=== PATIENT | male | born 1975 | race Caucasian/White ===

== ENCOUNTER 2021-04-13 19:59 | Inpatient (IN) | payer BC, MEDICAID ==
[2021-04-13] MEDS ORDERED: Sodium Chloride 0.9% 1000 ML 1,000 ML IV SCH (20:15)
[2021-04-13] MEDS ORDERED: Zofran 4 MG/2 ML VIAL IV ONE (20:15)
[2021-04-13] MEDS ORDERED: Hydromorphone 1 mg/ml Injection IV ONE (20:17)
[2021-04-13] MEDS ORDERED: Zosyn 3.375 GM Vial 3.375 GM in Sodium Chloride 100ML MINI-BAG PLUS 100 ML IV ONE (20:17)
[2021-04-13] MEDS ORDERED: Zofran 4 MG/2 ML VIAL ONE (20:31)
[2021-04-13] MEDS ORDERED: Hydromorphone 1 mg/ml Injection ONE (20:31)
[2021-04-13] MEDS ORDERED: Zosyn 3.375 GM Vial IV ONE ×2 (20:32→20:34)
[2021-04-13] MEDS ORDERED: Sodium Chloride 0.9% 100 ML BAG 100 ML ONE (20:33)
[2021-04-13] MEDS ORDERED: Sodium Chloride 100ML MINI-BAG PLUS 0 ML IV ONE (20:34)
[2021-04-13 21:15] LABS: Absolute Neutrophil Ct (ANC) 7.18 (1.4-6.9); BASOPHIL % 0.1 % (0.0-0.4); Basophil (Absolute #) 0.01 (0-0.4); Eosinophil % 0.3 % (0.00-5.0); Eosinophil (Absolute #) 0.03 (0-0.5); Hematocrit 40.2 % (42-50); Hemoglobin 13.5 gm/dl (12.5-18.0); Lymphocyte (Absolute #) 1.55 (1.0-4.6); Lymphocytes % 15.9 % (24.0-44.0); Mean Cell Volume 85.7 fl (78-100); Mean Corpuscular Hemoglobin 28.8 pg (26-32); Mean Corpuscular Hgb Concent. 33.6 g/dl (32-36); Mean Platelet Volume 9.1 fl (7.5-11.0); Monocytes % 10.2 % (0.0-12.0); Neutrophil % 73.5 % (36.0-66.0); Platelet Count 222 K/mm3 (150-450); Red Blood Count 4.69 M/mm3 (4.1-5.6); Red Cell Distribution Width 12.5 % (11.5-14.0); White Blood Count 9.8 K/mm3 (4.0-10.5)
[2021-04-13 21:27] LABS: ALBUMIN 3.9 g/dL (3.5-5.0); ALKALINE PHOSPHATASE 89 U/L (38-126); ANION GAP 14.8 MEQ/L (5-15); BLOOD UREA NITROGEN 10 mg/dL (9-20); CHLORIDE 90 mmol/L (98-107); Calcium 8.4 mg/dL (8.4-10.2); Carbon Dioxide 29 mmol/L (22-30); Creatinine 1 0.76 mg/dL (0.66-1.25); EST GLOMERULAR FILTRATION RATE > 60.0 ML/MIN; Glucose 255 mg/dL (74-106); Potassium 4.2 mmol/L (3.5-5.1); SGOT/AST 17 U/L (17-59); SGPT/ALT 19 U/L (0-50); SODIUM 130 mmol/L (137-145); Total Protein 6.6 g/dL (6.3-8.2)
--- NOTE | 2021-04-13 22:03 | ERPHSYRPT ---
- History of Present Illness Time Seen by Provider: 04/13/21 20:30 Source: patient Exam Limitations: no limitations Patient Subjective Stated Complaint: Fever. Right buttock pain, redness, swelling, and tenderness, bloody drainage from right buttock Triage Nursing Assessment: Right buttock red and swollen, small amount of serosanguineous drainage. Physician History: Patient is a 45-year-old male who started 1 week ago with redness and pain right buttocks which has progressed and is now causing severe pain swelling etc. he has been treated as an outpatient with Augmentin without benefit. He is diabetic but at present is not requiring medications. Timing/Duration: week(s) (1) Severity: severe Modifying Factors: Improves With: movement Associated Symptoms: denies symptoms Allergies/Adverse Reactions: No Known Drug Allergies Allergy (Unverified 04/13/21 20:27) Home Medications: Amoxicillin/Potassium Clav [Amox-Clav 875-125 mg Tablet] 1 tab PO BID 04/13/21 [History] Travel Risk - International Travel Have you traveled outside of the country in past 3 weeks: No - Coronavirus Screening Are you exhibiting any of the following symptoms?: No - Vaccine Status Have you recieved a Covid-19 vaccination: No - Review of Systems Constitutional: No Fever, No Chills Eyes: No Symptoms Ears, Nose, & Throat: No Symptoms Respiratory: No Cough, No Dyspnea Cardiac: No Chest Pain, No Edema, No Syncope Abdominal/Gastrointestinal: No Abdominal Pain, No Nausea, No Vomiting, No Diarrhea Genitourinary Symptoms: No Dysuria Musculoskeletal: No Back Pain, No Neck Pain Skin: Cellulitis (Right buttocks), No Rash Neurological: No Dizziness, No Focal Weakness, No Sensory Changes Psychological: No Symptoms Endocrine: No Symptoms All Other Systems: Reviewed and Negative - Past Medical History Pertinent Past Medical History: No Neurological History: No Pertinent History ENT History: No Pertinent History Cardiac History: No Pertinent History Respiratory History: No Pertinent History Endocrine Medical History: Diabetes Type II Musculoskeletal History: No Pertinent History GI Medical History: No Pertinent History History: No Pertinent History Psycho-Social History: No Pertinent History Male Reproductive Disorders: No Pertinent History Other Medical History: cellulitis left inner thigh 2014 - Past Surgical History Past Surgical History: Yes Neuro Surgical History: No Pertinent History Cardiac: No Pertinent History Respiratory: No Pertinent History Gastrointestinal: No Pertinent History Genitourinary: No Pertinent History Musculoskeletal: Orthopedic Surgery Male Surgical History: No Pertinent History Other Surgical History: shoulder surgery - Social History Smoking Status: Former smoker Drug Use: none - Nursing Vital Signs Nursing Vital Signs: Initial Vital Signs Temperature 98.7 F 04/13/21 20:14 Pulse Rate 99 H 04/13/21 20:14 Respiratory Rate 20 04/13/21 20:14 Blood Pressure 149/85 04/13/21 20:14 O2 Sat by Pulse Oximetry 98 04/13/21 20:14 Pain Scale Pain Intensity 10 - Physical Exam General Appearance: moderate distress Eye Exam: PERRL/EOMI, eyes nml inspection Ears, Nose, Throat Exam: normal ENT inspection, TMs normal, pharynx normal, moist mucous membranes Neck Exam: normal inspection, non-tender, supple, full range of motion Respiratory Exam: normal breath sounds, lungs clear, No respiratory distress Cardiovascular Exam: regular rate/rhythm, normal heart sounds, normal peripheral pulses Gastrointestinal/Abdomen Exam: soft, normal bowel sounds, No tenderness, No mass Back Exam: normal inspection, normal range of motion, No CVA tenderness, No vertebral tenderness Extremity Exam: normal inspection, normal range of motion, pelvis stable Neurologic Exam: alert, oriented x 3, cooperative, normal mood/affect, nml cerebellar function, nml station & gait, sensation nml, No motor deficits Skin Exam: other (The right buttocks is remarkable for extreme redness heat tenderness and edema) Lymphatic Exam: No adenopathy SpO2: 98 O2 Delivery: Room Air - Course Nursing assessment & vital signs reviewed: Yes - CT Exams Abdomen/Pelvis CT Interpretation: Tele-radiologist Report Ordered Tests: Active Orders 24 hr Category Date Time Status IV Insertion STAT Care 04/13/21 20:15 Active ABDOMEN AND PELVIS W CONTRAST [CT] Stat Exams 04/13/21 20:18 Taken BLOOD CULTURE Stat Lab 04/13/21 20:30 Ordered CBC W DIFF Stat Lab 04/13/21 20:30 Completed CMP Stat Lab 04/13/21 20:30 Completed Lactic Acid Stat Lab 04/13/21 21:06 Completed Medication Summary Generic Name Dose Route Start Last Admin Trade Name Freq PRN Reason Stop Dose Admin Sodium Chloride 1,000 mls @ 100 mls/hr 04/13/21 20:15 04/13/21 20:38 Sodium Chloride 0.9% 1000 Ml IV 05/13/21 20:14 100 mls/hr .Q10H MIRIAN Administration Discontinued Medications Generic Name Dose Route Start Last Admin Trade Name Brayden PRN Reason Stop Dose Admin Hydromorphone HCl 1 mg 04/13/21 20:17 04/13/21 20:39 Hydromorphone 1 Mg/1ml Inj 1 Mg/Ml Syringe IV 04/13/21 20:18 1 mg STAT ONE Administration Hydromorphone HCl Confirm 04/13/21 20:31 Hydromorphone 1 Mg/1ml Inj 1 Mg/Ml Syringe Administered 04/13/21 20:32 Dose 1 mg .ROUTE .STK-MED ONE Piperacillin Sod/Tazobactam 100 mls @ 200 mls/hr 04/13/21 20:17 04/13/21 20:39 Sod 3.375 gm/ Sodium Chloride IV 04/13/21 20:46 200 mls/hr STAT ONE Administration Sodium Chloride Confirm 04/13/21 20:33 Sodium Chloride 0.9% 100 Ml Bag Administered 04/13/21 20:34 Dose 100 mls @ ud .ROUTE .STK-MED ONE Sodium Chloride Confirm 04/13/21 20:34 Sodium Chloride 100ml Mini-Bag Plus Administered 04/13/21 20:35 Dose 100 mls @ ud IV .STK-MED ONE Ondansetron HCl 4 mg 04/13/21 20:15 04/13/21 20:39 Ondansetron Hcl 4 Mg/2 Ml Vial IV 04/13/21 20:16 4 mg STAT ONE Administration Ondansetron HCl Confirm 04/13/21 20:31 Ondansetron Hcl 4 Mg/2 Ml Vial Administered 04/13/21 20:32 Dose 4 mg .ROUTE .STK-MED ONE Piperacillin Sod/Tazobactam Sod Confirm 04/13/21 20:32 Piperacillin/Tazobactam Sodium 3.375 Gm Vial Administered 04/13/21 20:33 Dose 3.375 gm IV .STK-MED ONE Piperacillin Sod/Tazobactam Sod Confirm 04/13/21 20:34 Piperacillin/Tazobactam Sodium 3.375 Gm Vial Administered 04/13/21 20:35 Dose 3.375 gm IV .STK-MED ONE Lab/Rad Data: Laboratory Result Diagrams 04/13/21 20:30 04/13/21 20:30 Laboratory Results 04/13/21 04/13/21 04/13/21 Range/Units 21:06 20:30 20:30 WBC 9.8 (4.0-10.5) K/mm3 RBC 4.69 (4.1-5.6) M/mm3 Hgb 13.5 (12.5-18.0) gm/dl Hct 40.2 L (42-50) % MCV 85.7 (78-100) fl MCH 28.8 (26-32) pg MCHC 33.6 (32-36) g/dl RDW 12.5 (11.5-14.0) % Plt Count 222 (150-450) K/mm3 MPV 9.1 (7.5-11.0) fl Gran % 73.5 H (36.0-66.0) % Eos # (Auto) 0.03 (0-0.5) Absolute Lymphs (auto) 1.55 (1.0-4.6) Absolute Monos (auto) 1.00 (0.0-1.3) Lymphocytes % 15.9 L (24.0-44.0) % Monocytes % 10.2 (0.0-12.0) % Eosinophils % 0.3 (0.00-5.0) % Basophils % 0.1 (0.0-0.4) % Absolute Granulocytes 7.18 H (1.4-6.9) Basophils # 0.01 (0-0.4) Sodium 130 L (137-145) mmol/L Potassium 4.2 (3.5-5.1) mmol/L Chloride 90 L (98-107) mmol/L Carbon Dioxide 29 (22-30) mmol/L Anion Gap 14.8 (5-15) MEQ/L BUN 10 (9-20) mg/dL Creatinine 0.76 (0.66-1.25) mg/dL Estimated GFR > 60.0 ML/MIN Glucose 255 H (74-106) mg/dL Lactic Acid 1.5 (0.4-2.0) Calcium 8.4 (8.4-10.2) mg/dL Total Bilirubin 1.10 (0.2-1.3) mg/dL AST 17 (17-59) U/L ALT 19 (0-50) U/L Alkaline Phosphatase 89 (38-126) U/L Serum Total Protein 6.6 (6.3-8.2) g/dL Albumin 3.9 (3.5-5.0) g/dL - Progress Progress: unchanged Discussed with Dr.: Otto - Departure Departure Disposition: Observation Clinical Impression: Cellulitis of right buttock Condition: Stable Critical Care Time: No Referrals: PETROS CAREY PA [Primary Care Provider] - Follow up/PCP as directed
[2021-04-13] MEDS ORDERED: SUBLIMAZE 100 MCG/2 ML IV ONE (22:10)
[2021-04-13] MEDS ORDERED: SUBLIMAZE 100 MCG/2 ML ONE (22:22)
[2021-04-13] MEDS ORDERED: VANCOMYCIN 1 GRAM/200 ML BAG 1 GM/200 ML PIGGYBACK IV SCH (23:30)
[2021-04-13 23:35] LABS: INFLUENZA A NEGATIVE (NEGATIVE); INFLUENZA B NEGATIVE (NEGATIVE); RESPIRATORY SYNCTIAL VIRUS NEGATIVE (Negative); SARS-CoV-2 Xpert Express NEGATIVE (NEGATIVE)
[2021-04-14] MEDS: Hydromorphone 1 mg/ml Injection IV PRN ×4 (00:51→15:11)
[2021-04-14] MEDS ORDERED: HOLD METFORMIN PRODUCTS FOR 48 HOURS MC SCH (01:00)
[2021-04-14 05:54] LABS: Absolute Neutrophil Ct (ANC) 7.42 (1.4-6.9); BASOPHIL % 0.1 % (0.0-0.4); Basophil (Absolute #) 0.01 (0-0.4); Eosinophil % 0.5 % (0.00-5.0); Eosinophil (Absolute #) 0.05 (0-0.5); Hematocrit 38.8 % (42-50); Hemoglobin 12.6 gm/dl (12.5-18.0); Lymphocyte (Absolute #) 1.84 (1.0-4.6); Lymphocytes % 17.7 % (24.0-44.0); Mean Cell Volume 86.8 fl (78-100); Mean Corpuscular Hemoglobin 28.2 pg (26-32); Mean Corpuscular Hgb Concent. 32.5 g/dl (32-36); Mean Platelet Volume 8.9 fl (7.5-11.0); Monocyte (Absolute #) 1.08 (0.0-1.3); Monocytes % 10.4 % (0.0-12.0); Neutrophil % 71.3 % (36.0-66.0); Platelet Count 216 K/mm3 (150-450); Red Blood Count 4.47 M/mm3 (4.1-5.6); Red Cell Distribution Width 12.5 % (11.5-14.0); White Blood Count 10.4 K/mm3 (4.0-10.5)
[2021-04-14 07:06] LABS: ALBUMIN 3.6 g/dL (3.5-5.0); ALKALINE PHOSPHATASE 76 U/L (38-126); ANION GAP 12.4 MEQ/L (5-15); BLOOD UREA NITROGEN 10 mg/dL (9-20); CHLORIDE 93 mmol/L (98-107); Carbon Dioxide 27 mmol/L (22-30); Creatinine 1 0.77 mg/dL (0.66-1.25); EST GLOMERULAR FILTRATION RATE > 60.0 ML/MIN; Glucose 220 mg/dL (74-106); Potassium 4.2 mmol/L (3.5-5.1); SGOT/AST 18 U/L (17-59); SGPT/ALT 16 U/L (0-50); SODIUM 128 mmol/L (137-145); Total Protein 6.7 g/dL (6.3-8.2)
[2021-04-14] MEDS: VANCOMYCIN 1.5 GRAM/300 ML BAG 1.5 GM/300 ML PIGGYBACK IV SCH ×3 (07:53→22:34)
[2021-04-14] MEDS: Sodium Chloride 0.9% 1000 ML 1,000 ML IV SCH ×2 (07:53→21:36)
[2021-04-14] MEDS ORDERED: Zofran 4 MG/2 ML VIAL IV PRN (08:32)
--- NOTE | 2021-04-14 08:32 | PCM.HP ---
History of Present Illness - Chief Complaint Chief Complaint: CELLULITIS History of Present Illness: is a 45 year old male who has had pain and swelling in the skin around his rectum for the last week, he went to [facility] clinic and was given augmentin but continued to worsen, he has had fever, pain and redness with some drainage from the perirectal region. He has a known history of diabetes but has not been on any treatment due to some insurance issues, a1c was 12% on arrival. - Review of Systems Constitutional: Fever, Chills Cardiac: No Chest Pain, No Edema, No Syncope Abdominal/Gastrointestinal: No Abdominal Pain, No Nausea, No Vomiting, No Diarrhea Genitourinary Symptoms: No Dysuria Skin: Cellulitis Neurological: No Dizziness, No Focal Weakness, No Sensory Changes All Other Systems: Reviewed and Negative Medications & Allergies Home Medications: Home Medication List Amoxicillin/Potassium Clav [Amox-Clav 875-125 mg Tablet] 1 tab PO BID 04/13/21 [History Confirmed 04/13/21] Allergies/Adverse Reactions: Allergies Allergy/AdvReac Type Severity Reaction Status Date / Time No Known Drug Allergies Allergy Verified 04/14/21 00:37 - Past Medical History Past Medical History: No Neurological History: No Pertinent History ENT History: No Pertinent History Cardiac History: Hypertension Respiratory History: No Pertinent History Endocrine Medical History: Diabetes Type II Musculoskelatal History: No Pertinent History GI Medical History: No Pertinent History History: No Pertinent History Pyscho-Social History: No Pertinent History Male Reproductive Disorders: No Pertinent History Comment: cellulitis left inner thigh 2014 - Past Surgical History Past Surgical History: Yes Neuro Surgical History: No Pertinent History Cardiac History: No Pertinent History Respiratory Surgery: No Pertinent History GI Surgical History: No Pertinent History Genitourinary Surgical Hx: No Pertinent History Musculskeletal Surgical Hx: Orthopedic Surgery Male Surgical History: No Pertinent History Other Surgical History: shoulder surgery - Social History Smoking Status: Never smoker Exposure to second hand smoke: No Alcohol: Rarely Drug Use: none - Physical Exam Vital Signs: Vital Signs - 24 hr Temp Pulse Resp BP Pulse Ox 04/14/21 08:00 97.7 F 91 H 16 145/69 96 04/14/21 04:00 97.5 F 93 H 22 114/61 94 L 04/14/21 00:17 100.4 F 101 H 22 132/68 96 04/13/21 22:37 97.5 F 97 H 161/74 93 L 04/13/21 22:05 98 04/13/21 22:00 96 H 108/57 95 04/13/21 20:14 98.7 F 99 H 20 149/85 98 General Appearance: no apparent distress, alert Neurologic Exam: alert, oriented x 3, cooperative, normal mood/affect, nml cerebellar function, nml station & gait, sensation nml, No motor deficits Respiratory Exam: normal breath sounds Cardiovascular Exam: regular rate/rhythm, normal heart sounds, normal peripheral pulses Gastrointestinal/Abdomen Exam: soft, normal bowel sounds, No tenderness, No mass Skin Exam: other (perirectal erythema, induration, scant drainage, redness extends to right buttock with warmth) Wound Assessment: Skin/Wound Assessment Wound/Incision Assessment Start: 04/14/21 00:07 Text: Status: Active Freq: Q6H Protocol: Document 04/14/21 02:00 PAULINA (Rec: 04/14/21 02:22 PAULINA [id number]) Wound/Incision Assessment Right Buttock Wound Assessment Shift Assessment Wound Type CELLULITIS Wound Stage Non Pressure Wound Drainage Amount Minimal Drainage Description Serosanguineous Drainage Odor None/Absent Comment RED AND WARM TO THE TOUCH WITH MODERATE EDEMA NOTED Results - Labs Lab/Micro Results: Lab Results-Last 24 Hours 04/13/21 04/13/21 04/13/21 Range/Units 20:30 20:30 21:06 WBC 9.8 (4.0-10.5) K/mm3 RBC 4.69 (4.1-5.6) M/mm3 Hgb 13.5 (12.5-18.0) gm/dl Hct 40.2 L (42-50) % MCV 85.7 (78-100) fl MCH 28.8 (26-32) pg MCHC 33.6 (32-36) g/dl RDW 12.5 (11.5-14.0) % Plt Count 222 (150-450) K/mm3 MPV 9.1 (7.5-11.0) fl Gran % 73.5 H (36.0-66.0) % Eos # (Auto) 0.03 (0-0.5) Absolute Lymphs (auto) 1.55 (1.0-4.6) Absolute Monos (auto) 1.00 (0.0-1.3) Lymphocytes % 15.9 L (24.0-44.0) % Monocytes % 10.2 (0.0-12.0) % Eosinophils % 0.3 (0.00-5.0) % Basophils % 0.1 (0.0-0.4) % Absolute Granulocytes 7.18 H (1.4-6.9) Basophils # 0.01 (0-0.4) Sodium 130 L (137-145) mmol/L Potassium 4.2 (3.5-5.1) mmol/L Chloride 90 L (98-107) mmol/L Carbon Dioxide 29 (22-30) mmol/L Anion Gap 14.8 (5-15) MEQ/L BUN 10 (9-20) mg/dL Creatinine 0.76 (0.66-1.25) mg/dL Estimated GFR > 60.0 ML/MIN Glucose 255 H (74-106) mg/dL POC Glucometer (74 to 106) mg/dL Hemoglobin A1c (4.5-6.0) % Lactic Acid 1.5 (0.4-2.0) Calcium 8.4 (8.4-10.2) mg/dL Total Bilirubin 1.10 (0.2-1.3) mg/dL AST 17 (17-59) U/L ALT 19 (0-50) U/L Alkaline Phosphatase 89 (38-126) U/L Serum Total Protein 6.6 (6.3-8.2) g/dL Albumin 3.9 (3.5-5.0) g/dL Influenza Type A Ag (NEGATIVE) Influenza Type B Ag (NEGATIVE) RSV (PCR) (Negative) SARS-CoV-2 (PCR) (NEGATIVE) 04/13/21 04/14/21 04/14/21 Range/Units 22:55 05:35 05:35 WBC 10.4 (4.0-10.5) K/mm3 RBC 4.47 (4.1-5.6) M/mm3 Hgb 12.6 (12.5-18.0) gm/dl Hct 38.8 L (42-50) % MCV 86.8 (78-100) fl MCH 28.2 (26-32) pg MCHC 32.5 (32-36) g/dl RDW 12.5 (11.5-14.0) % Plt Count 216 (150-450) K/mm3 MPV 8.9 (7.5-11.0) fl Gran % 71.3 H (36.0-66.0) % Eos # (Auto) 0.05 (0-0.5) Absolute Lymphs (auto) 1.84 (1.0-4.6) Absolute Monos (auto) 1.08 (0.0-1.3) Lymphocytes % 17.7 L (24.0-44.0) % Monocytes % 10.4 (0.0-12.0) % Eosinophils % 0.5 (0.00-5.0) % Basophils % 0.1 (0.0-0.4) % Absolute Granulocytes 7.42 H (1.4-6.9) Basophils # 0.01 (0-0.4) Sodium 128 L (137-145) mmol/L Potassium 4.2 (3.5-5.1) mmol/L Chloride 93 L (98-107) mmol/L Carbon Dioxide 27 (22-30) mmol/L Anion Gap 12.4 (5-15) MEQ/L BUN 10 (9-20) mg/dL Creatinine 0.77 (0.66-1.25) mg/dL Estimated GFR > 60.0 ML/MIN Glucose 220 H (74-106) mg/dL POC Glucometer (74 to 106) mg/dL Hemoglobin A1c (4.5-6.0) % Lactic Acid (0.4-2.0) Calcium 8.0 L (8.4-10.2) mg/dL Total Bilirubin 1.00 (0.2-1.3) mg/dL AST 18 (17-59) U/L ALT 16 (0-50) U/L Alkaline Phosphatase 76 (38-126) U/L Serum Total Protein 6.7 (6.3-8.2) g/dL Albumin 3.6 (3.5-5.0) g/dL Influenza Type A Ag NEGATIVE (NEGATIVE) Influenza Type B Ag NEGATIVE (NEGATIVE) RSV (PCR) NEGATIVE (Negative) SARS-CoV-2 (PCR) NEGATIVE (NEGATIVE) 04/14/21 04/14/21 Range/Units 05:35 06:41 WBC (4.0-10.5) K/mm3 RBC (4.1-5.6) M/mm3 Hgb (12.5-18.0) gm/dl Hct (42-50) % MCV (78-100) fl MCH (26-32) pg MCHC (32-36) g/dl RDW (11.5-14.0) % Plt Count (150-450) K/mm3 MPV (7.5-11.0) fl Gran % (36.0-66.0) % Eos # (Auto) (0-0.5) Absolute Lymphs (auto) (1.0-4.6) Absolute Monos (auto) (0.0-1.3) Lymphocytes % (24.0-44.0) % Monocytes % (0.0-12.0) % Eosinophils % (0.00-5.0) % Basophils % (0.0-0.4) % Absolute Granulocytes (1.4-6.9) Basophils # (0-0.4) Sodium (137-145) mmol/L Potassium (3.5-5.1) mmol/L Chloride (98-107) mmol/L Carbon Dioxide (22-30) mmol/L Anion Gap (5-15) MEQ/L BUN (9-20) mg/dL Creatinine (0.66-1.25) mg/dL Estimated GFR ML/MIN Glucose (74-106) mg/dL POC Glucometer 247 H (74 to 106) mg/dL Hemoglobin A1c 11.96 H (4.5-6.0) % Lactic Acid (0.4-2.0) Calcium (8.4-10.2) mg/dL Total Bilirubin (0.2-1.3) mg/dL AST (17-59) U/L ALT (0-50) U/L Alkaline Phosphatase (38-126) U/L Serum Total Protein (6.3-8.2) g/dL Albumin (3.5-5.0) g/dL Influenza Type A Ag (NEGATIVE) Influenza Type B Ag (NEGATIVE) RSV (PCR) (Negative) SARS-CoV-2 (PCR) (NEGATIVE) - Radiology Impressions Radiology Exams & Impressions: Radiology Procedures Category Date Time Status ABDOMEN AND PELVIS W CONTRAST [CT] Stat Exams 04/13/21 20:18 Taken Assessment/Plan (1) Perirectal cellulitis Current Visit: Yes Status: Acute Assessment & Plan: due to proximity to rectum will cover with vanc and zosyn, surgery consulted. no discrete abscess on ct but exam and history concerning for perirectal abcess. Code(s): K61.1 - RECTAL ABSCESS (2) Uncontrolled type 2 diabetes mellitus Current Visit: Yes Status: Acute Assessment & Plan: restart lantus and sliding scale coverage, discussed importance of treatment. Code(s): E11.65 - TYPE 2 DIABETES MELLITUS WITH HYPERGLYCEMIA
[2021-04-14] MEDS: HUMALOG SQ PRN ×2 (09:06→22:35)
--- NOTE | 2021-04-14 09:10 | XRAY ---
Indication: Perirectal abscess/pain. Multiple contiguous axial images obtained through the abdomen and pelvis using 80 cc Isovue 370 contrast. Comparison: None Lung bases are clear. Heart is not enlarged. Noncontrasted stomach and bowel loops appear nonobstructed with normal appendix. Medial right gluteal fold demonstrates cutaneous/subcutaneous induration favoring cellulitis. No walled off fluid collection or soft tissue emphysema. Prominent right inguinal lymph nodes presumed reactive, largest 1.2 x 2.1 cm. Fatty hepatomegaly measuring 25.3 cm and 18 cm splenomegaly. Remaining liver, gallbladder, pancreas, spleen, adrenal glands, kidneys, ureters, and bladder are unremarkable. Minimal scattered aortoiliac calcifications. No AAA or pathologic retroperitoneal lymphadenopathy. Osseous structures intact with mild degenerative changes throughout the spine. Impression: 1. Right gluteal cellulitis with right inguinal reactive adenopathy. No walled off fluid collection/abscess. 2. Fatty hepatomegaly and splenomegaly. 3. Remaining CT abdomen/pelvis with contrast exam is negative. Comment: Preliminary interpretation made by [facility]. No critical discrepancy.
[2021-04-14] MEDS ORDERED: VANCOMYCIN 1 GRAM/200 ML BAG 1 GM/200 ML PIGGYBACK IV SCH (10:00)
[2021-04-14] MEDS: Zosyn 3.375 GM Vial 3.375 GM in Sodium Chloride 100ML MINI-BAG PLUS 100 ML IV SCH ×2 (11:52→18:07)
[2021-04-14] MEDS ORDERED: DIPRIVAN 200 MG/20 ML IV ONE (19:34)
[2021-04-14] MEDS ORDERED: SUBLIMAZE 100 MCG/2 ML ONE ×2 (19:34→20:00)
[2021-04-14] MEDS ORDERED: Versed 2 MG/2 ML Injection ONE (19:35)
[2021-04-14] MEDS ORDERED: Sodium Chloride 0.9% 100 ML BAG 100 ML ONE (19:56)
[2021-04-14] MEDS ORDERED: TORAdol 30 mg Injection ONE (20:23)
[2021-04-14] MEDS: TYLENOL 325 MG PO PRN (22:34)
[2021-04-15] MEDS ORDERED: MORPHINE SULFATE 2 MG INJ IV PRN (00:32)
[2021-04-15] MEDS ORDERED: Zofran 4 MG/2 ML VIAL IV PRN (00:33)
[2021-04-15] MEDS: Zosyn 3.375 GM Vial 3.375 GM in Sodium Chloride 100ML MINI-BAG PLUS 100 ML IV SCH ×4 (00:55→18:40)
[2021-04-15] MEDS: TYLENOL 325 MG PO PRN (03:56)
[2021-04-15] MEDS: Hydromorphone 1 mg/ml Injection IV PRN ×5 (05:14→22:39)
[2021-04-15] MEDS: Sodium Chloride 0.9% 1000 ML 1,000 ML IV SCH ×3 (05:19→23:04)
[2021-04-15] MEDS: VANCOMYCIN 1.5 GRAM/300 ML BAG 1.5 GM/300 ML PIGGYBACK IV SCH ×3 (05:58→21:38)
[2021-04-15 06:20] LABS: Hematocrit 38.1 % (42-50); Mean Cell Volume 88.6 fl (78-100); Mean Corpuscular Hemoglobin 27.9 pg (26-32); Mean Corpuscular Hgb Concent. 31.5 g/dl (32-36); Mean Platelet Volume 9.8 fl (7.5-11.0); Platelet Count 202 K/mm3 (150-450); Red Cell Distribution Width 12.8 % (11.5-14.0); White Blood Count 9.3 K/mm3 (4.0-10.5)
[2021-04-15 06:38] LABS: ALBUMIN 3.2 g/dL (3.5-5.0); ALKALINE PHOSPHATASE 83 U/L (38-126); ANION GAP 12.2 MEQ/L (5-15); BLOOD UREA NITROGEN 12 mg/dL (9-20); CHLORIDE 95 mmol/L (98-107); Calcium 7.7 mg/dL (8.4-10.2); Carbon Dioxide 28 mmol/L (22-30); Creatinine 1 0.82 mg/dL (0.66-1.25); EST GLOMERULAR FILTRATION RATE > 60.0 ML/MIN; Glucose 230 mg/dL (74-106); MAGNESIUM 2.1 mg/dL (1.6-2.3); Potassium 4.2 mmol/L (3.5-5.1); SGOT/AST 27 U/L (17-59); SGPT/ALT 21 U/L (0-50); SODIUM 131 mmol/L (137-145); Total Protein 5.7 g/dL (6.3-8.2)
[2021-04-15] MEDS ORDERED: Lantus Insulin SQ SCH (08:00)
[2021-04-15] MEDS: HUMALOG SQ PRN ×3 (09:20→21:50)
[2021-04-15] MEDS: Lantus Insulin SQ SCH (09:20)
--- NOTE | 2021-04-15 17:02 | PCM.NOTE ---
Date and Time: 04/15/21 1655 Subjective Assessment: Late entry for 04/15/21 at 0800. Pt has no pain at rest but 5-7/10 pain when up. [place] instant relief last night after I&D of abscess. Ate some last night, then lay down; had fever and sweating overnight. This morning, no appetite. Had a small amount of diarrhea. - Review of Systems Constitutional: Fever Abdominal/Gastrointestinal: Diarrhea Skin: Other (abscess) Objective Exam General Appearance: no apparent distress, obese Neurologic Exam: oriented x 3, cooperative Skin Exam: other (R buttock with drain; surrounding approx [id number] indurated and erythematous. there is some bloody drainage apparent. tender to palpation.) Wound Assessment: Skin/Wound Assessment Wound/Incision Assessment Start: 04/14/21 00:07 Text: Status: Active Freq: Q6H Protocol: Document 04/15/21 15:00 BSANTUS (Rec: 04/15/21 15:56 BSANTUS [id number]) Wound/Incision Assessment Right Buttock Wound Assessment Shift Assessment Wound Type Incision Wound Stage Non Pressure Wound Drainage Amount Moderate Drainage Description Serosanguineous Drainage Odor Foul Odor General Appearance Open to air,Reddened,Draining Surrounding Tissue Bright Red,Edematous Comment post op from I&D, drain in place and draining open to air onto chux. pt has redness warmth and hardened area noted tender to touch and movement NO CHANGE SINCE AM ASSESSMENT Wound Photo Photo Taken No Eye Exam: eyes nml inspection Respiratory Exam: normal breath sounds, lungs clear, No crackles/rales, No rhonchi, No wheezing Cardiovascular Exam: regular rate/rhythm, normal heart sounds, No murmur Gastrointestinal/Abdomen Exam: soft, normal bowel sounds, No tenderness, No distention, No mass, No guarding, No rebound Extremity Exam: No pedal edema, No swelling OBJECTIVE DATA Vital Signs: Vital Signs - 24 hr Temp Pulse Resp BP Pulse Ox 04/15/21 09:00 96.3 F 77 23 133/72 95 04/15/21 05:00 98.5 F 87 20 104/55 95 04/14/21 21:00 100.6 F 94 H 16 142/75 95 04/14/21 19:22 98.0 F 88 16 129/71 97 Pain Assessment - Last Documented Pain Intensity 3 Pain Scale Used 0-10 Pain Scale Intake and Output: Intake & Output 04/13/21 04/14/21 04/15/21 04/16/21 11:59 11:59 11:59 11:59 Intake Total 740 3062 Balance 740 3062 Weight 153.314 kg 153.314 kg Lab Results: Lab Results-Last 24 Hours 04/14/21 04/15/21 04/15/21 Range/Units 22:15 05:15 05:15 WBC 9.3 (4.0-10.5) K/mm3 RBC 4.30 (4.1-5.6) M/mm3 Hgb 12.0 L (12.5-18.0) gm/dl Hct 38.1 L (42-50) % MCV 88.6 (78-100) fl MCH 27.9 (26-32) pg MCHC 31.5 L (32-36) g/dl RDW 12.8 (11.5-14.0) % Plt Count 202 (150-450) K/mm3 MPV 9.8 (7.5-11.0) fl Sodium 131 L (137-145) mmol/L Potassium 4.2 (3.5-5.1) mmol/L Chloride 95 L (98-107) mmol/L Carbon Dioxide 28 (22-30) mmol/L Anion Gap 12.2 (5-15) MEQ/L BUN 12 (9-20) mg/dL Creatinine 0.82 (0.66-1.25) mg/dL Estimated GFR > 60.0 ML/MIN Glucose 230 H (74-106) mg/dL POC Glucometer 282 H (74 to 106) mg/dL Calcium 7.7 L (8.4-10.2) mg/dL Magnesium 2.1 (1.6-2.3) mg/dL Total Bilirubin 0.80 (0.2-1.3) mg/dL AST 27 (17-59) U/L ALT 21 (0-50) U/L Alkaline Phosphatase 83 (38-126) U/L Serum Total Protein 5.7 L (6.3-8.2) g/dL Albumin 3.2 L (3.5-5.0) g/dL 04/15/21 04/15/21 04/15/21 Range/Units 09:03 12:22 16:48 WBC (4.0-10.5) K/mm3 RBC (4.1-5.6) M/mm3 Hgb (12.5-18.0) gm/dl Hct (42-50) % MCV (78-100) fl MCH (26-32) pg MCHC (32-36) g/dl RDW (11.5-14.0) % Plt Count (150-450) K/mm3 MPV (7.5-11.0) fl Sodium (137-145) mmol/L Potassium (3.5-5.1) mmol/L Chloride (98-107) mmol/L Carbon Dioxide (22-30) mmol/L Anion Gap (5-15) MEQ/L BUN (9-20) mg/dL Creatinine (0.66-1.25) mg/dL Estimated GFR ML/MIN Glucose (74-106) mg/dL POC Glucometer 219 H 238 H 265 H (74 to 106) mg/dL Calcium (8.4-10.2) mg/dL Magnesium (1.6-2.3) mg/dL Total Bilirubin (0.2-1.3) mg/dL AST (17-59) U/L ALT (0-50) U/L Alkaline Phosphatase (38-126) U/L Serum Total Protein (6.3-8.2) g/dL Albumin (3.5-5.0) g/dL Radiology Exams: Radiology Procedures Category Date Time Status ABDOMEN AND PELVIS W CONTRAST [CT] Stat Exams 04/13/21 20:18 Completed Assessment/Plan (1) Cellulitis of right buttock Current Visit: Yes Status: Acute Assessment & Plan: culture pending. I&D per surgery, thank you - post op day #1. On IV Vanc and zosyn. Added probiotic. Code(s): L03.317 - CELLULITIS OF BUTTOCK (2) Perirectal cellulitis Current Visit: Yes Status: Acute Code(s): K61.1 - RECTAL ABSCESS (3) Uncontrolled type 2 diabetes mellitus Current Visit: Yes Status: Chronic Qualifiers: Glycemic state: with hyperglycemia Qualified Code(s): E11.65 - Type 2 di abetes mellitus with hyperglycemia Code(s): E11.65 - TYPE 2 DIABETES MELLITUS WITH HYPERGLYCEMIA
[2021-04-15] MEDS: Acidophilus TABLET PO SCH ×2 (18:40→21:38)
[2021-04-16] MEDS: Zosyn 3.375 GM Vial 3.375 GM in Sodium Chloride 100ML MINI-BAG PLUS 100 ML IV SCH ×4 (00:03→17:49)
[2021-04-16] MEDS: Hydromorphone 1 mg/ml Injection IV PRN ×2 (02:52→06:57)
[2021-04-16] MEDS: Sodium Chloride 0.9% 1000 ML 1,000 ML IV SCH (02:52)
[2021-04-16 05:53] LABS: Hematocrit 34.7 % (42-50); Hemoglobin 11.1 gm/dl (12.5-18.0); Mean Cell Volume 88.7 fl (78-100); Mean Corpuscular Hemoglobin 28.4 pg (26-32); Mean Platelet Volume 9.1 fl (7.5-11.0); Platelet Count 236 K/mm3 (150-450); Red Blood Count 3.91 M/mm3 (4.1-5.6); Red Cell Distribution Width 12.8 % (11.5-14.0); White Blood Count 7.9 K/mm3 (4.0-10.5)
[2021-04-16 06:22] LABS: ANION GAP 9.5 MEQ/L (5-15); BLOOD UREA NITROGEN 9 mg/dL (9-20); CHLORIDE 96 mmol/L (98-107); Calcium 7.7 mg/dL (8.4-10.2); Carbon Dioxide 30 mmol/L (22-30); Creatinine 1 0.76 mg/dL (0.66-1.25); EST GLOMERULAR FILTRATION RATE > 60.0 ML/MIN; Glucose 198 mg/dL (74-106); Potassium 3.3 mmol/L (3.5-5.1); SODIUM 132 mmol/L (137-145)
[2021-04-16] MEDS: VANCOMYCIN 1.5 GRAM/300 ML BAG 1.5 GM/300 ML PIGGYBACK IV SCH ×2 (06:22→15:21)
[2021-04-16] MEDS: Lantus Insulin SQ SCH (07:46)
[2021-04-16] MEDS: HUMALOG SQ PRN ×4 (07:46→22:50)
--- NOTE | 2021-04-16 09:08 | PCM.NOTE ---
Date and Time: 04/16/21905 Subjective Assessment: patient has a lot of drainage from surgical site, he is feeling some better. pain is well controlled Objective Exam General Appearance: no apparent distress, obese Skin Exam: normal color, warm, dry Wound Assessment: Skin/Wound Assessment Wound/Incision Assessment Start: 04/14/21 00:07 Text: Status: Active Freq: Q6H Protocol: Document 04/16/21 08:00 EK (Rec: 04/16/21 08:39 EK [id number]) Wound/Incision Assessment Right Buttock Wound Assessment Shift Assessment Wound Type Incision Wound Stage Non Pressure Wound Drainage Amount Moderate Drainage Description Serosanguineous Drainage Odor None/Absent General Appearance Open to air,Reddened,Draining Surrounding Tissue [place],Edematous Comment NO CHANGE-SX SITE FROM RECENT ABCESS I&D WITH DRAIN INTACT TO RIGHT INNER BUTTOCKS Right Posterior Drain Type [place] Drainage Description Other Odor None/Absent Comment drainage appears pink on drainage pad Wound Photo Photo Taken No Respiratory Exam: normal breath sounds, lungs clear, No respiratory distress Cardiovascular Exam: regular rate/rhythm, normal heart sounds Gastrointestinal/Abdomen Exam: soft, No tenderness, No mass Extremity Exam: other (packing in right medial buttock with copious drainage from incision and drainage) OBJECTIVE DATA Vital Signs: Vital Signs - 24 hr Temp Pulse Resp BP Pulse Ox 04/16/21 07:48 97.9 F 77 20 129/75 96 04/16/21 04:00 97.5 F 75 20 112/71 94 L 04/16/21 00:00 98.8 F 80 20 122/73 95 04/15/21 22:38 86 128/86 04/15/21 20:00 98.9 F 85 20 135/89 94 L 04/15/21 13:00 96.4 F 85 21 121/59 95 Pain Assessment - Last Documented Pain Intensity 2 Pain Scale Used 0-10 Pain Scale Intake and Output: Intake & Output 04/13/21 04/14/21 04/15/21 04/16/21 11:59 11:59 11:59 11:59 Intake Total 740 3062 4648 Balance 740 3062 4648 Weight 153.314 kg 153.314 kg Lab Results: Lab Results-Last 24 Hours 04/15/21 04/15/21 04/15/21 Range/Units 12:22 16:48 21:37 WBC (4.0-10.5) K/mm3 RBC (4.1-5.6) M/mm3 Hgb (12.5-18.0) gm/dl Hct (42-50) % MCV (78-100) fl MCH (26-32) pg MCHC (32-36) g/dl RDW (11.5-14.0) % Plt Count (150-450) K/mm3 MPV (7.5-11.0) fl Sodium (137-145) mmol/L Potassium (3.5-5.1) mmol/L Chloride (98-107) mmol/L Carbon Dioxide (22-30) mmol/L Anion Gap (5-15) MEQ/L BUN (9-20) mg/dL Creatinine (0.66-1.25) mg/dL Estimated GFR ML/MIN Glucose (74-106) mg/dL POC Glucometer 238 H 265 H 262 H (74 to 106) mg/dL Calcium (8.4-10.2) mg/dL 04/16/21 04/16/21 04/16/21 Range/Units 05:52 05:52 06:38 WBC 7.9 (4.0-10.5) K/mm3 RBC 3.91 L (4.1-5.6) M/mm3 Hgb 11.1 L (12.5-18.0) gm/dl Hct 34.7 L (42-50) % MCV 88.7 (78-100) fl MCH 28.4 (26-32) pg MCHC 32.0 (32-36) g/dl RDW 12.8 (11.5-14.0) % Plt Count 236 (150-450) K/mm3 MPV 9.1 (7.5-11.0) fl Sodium 132 L (137-145) mmol/L Potassium 3.3 L D (3.5-5.1) mmol/L Chloride 96 L (98-107) mmol/L Carbon Dioxide 30 (22-30) mmol/L Anion Gap 9.5 (5-15) MEQ/L BUN 9 (9-20) mg/dL Creatinine 0.76 (0.66-1.25) mg/dL Estimated GFR > 60.0 ML/MIN Glucose 198 H (74-106) mg/dL POC Glucometer 181 H (74 to 106) mg/dL Calcium 7.7 L (8.4-10.2) mg/dL Assessment/Plan (1) Abscess, gluteal, right Current Visit: Yes Status: Acute Assessment & Plan: currently on vanc and zosyn, culture pending. Code(s): L02.31 - CUTANEOUS ABSCESS OF BUTTOCK (2) Perirectal cellulitis Current Visit: Yes Status: Acute Code(s): K61.1 - RECTAL ABSCESS (3) Uncontrolled type 2 diabetes mellitus Current Visit: Yes Status: Chronic Qualifiers: Glycemic state: with hyperglycemia Qualified Code(s): E11.65 - Type 2 diabetes mellitus with hyperglycemia Code(s): E11.65 - TYPE 2 DIABETES MELLITUS WITH HYPERGLYCEMIA
[2021-04-16] MEDS: PERCOCET TABLET 5/325MG PO PRN ×3 (09:25→18:27)
[2021-04-16] MEDS: Acidophilus TABLET PO SCH ×3 (09:25→22:50)
[2021-04-16] MEDS: Sodium Chloride 0.9% W/ 20 mEq KCl/LITER 1,000 ML IV SCH (09:29)
[2021-04-16] MEDS ORDERED: TROUGH DRUG LEVELS IJ ONE (13:30)
[2021-04-16] MEDS: VANCOMYCIN 2 GRAM/400 ML BAG 2 GM/400 ML PIGGYBACK IV SCH ×2 (15:29→22:50)
--- NOTE | 2021-04-16 17:32 | PCM.NOTE ---
Date and Time: 04/16/219 Objective Exam Wound Assessment: Skin/Wound Assessment Wound/Incision Assessment Start: 04/14/21 00:07 Text: Status: Active Freq: Q6H Protocol: Document 04/16/21 14:00 EK (Rec: 04/16/21 14:37 EK [id number]) Wound/Incision Assessment Right Buttock Wound Assessment Shift Assessment Wound Type Incision Wound Stage Non Pressure Wound Drainage Amount Moderate Drainage Description Serosanguineous Drainage Odor None/Absent General Appearance Open to air,Reddened,Draining Surrounding Tissue [place],Edematous Comment NO CHANGE-SX SITE FROM RECENT ABCESS I&D WITH DRAIN INTACT TO RIGHT INNER BUTTOCKS Right Posterior Drain Type [place] Drainage Description Other Odor None/Absent Comment drainage appears pink on drainage pad Wound Photo Photo Taken No OBJECTIVE DATA Vital Signs: Vital Signs - 24 hr Temp Pulse Resp BP Pulse Ox 04/16/21 16:00 98.7 F 74 20 132/61 98 04/16/21 12:00 98.0 F 71 18 133/77 97 04/16/21 07:48 97.9 F 77 20 129/75 96 04/16/21 04:00 97.5 F 75 20 112/71 94 L 04/16/21 00:00 98.8 F 80 20 122/73 95 04/15/21 22:38 86 128/86 04/15/21 20:00 98.9 F 85 20 135/89 94 L Pain Assessment - Last Documented Pain Intensity 3 Pain Scale Used 0-10 Pain Scale Intake and Output: Intake & Output 04/14/21 04/15/21 04/16/21 04/17/21 11:59 11:59 11:59 11:59 Intake Total 740 3062 4648 Balance 740 3062 4648 Weight 153.314 kg 153.314 kg Lab Results: Lab Results-Last 24 Hours 04/15/21 04/16/21 04/16/21 Range/Units 21:37 05:52 05:52 WBC 7.9 (4.0-10.5) K/mm3 RBC 3.91 L (4.1-5.6) M/mm3 Hgb 11.1 L (12.5-18.0) gm/dl Hct 34.7 L (42-50) % MCV 88.7 (78-100) fl MCH 28.4 (26-32) pg MCHC 32.0 (32-36) g/dl RDW 12.8 (11.5-14.0) % Plt Count 236 (150-450) K/mm3 MPV 9.1 (7.5-11.0) fl Sodium 132 L (137-145) mmol/L Potassium 3.3 L D (3.5-5.1) mmol/L Chloride 96 L (98-107) mmol/L Carbon Dioxide 30 (22-30) mmol/L Anion Gap 9.5 (5-15) MEQ/L BUN 9 (9-20) mg/dL Creatinine 0.76 (0.66-1.25) mg/dL Estimated GFR > 60.0 ML/MIN Glucose 198 H (74-106) mg/dL POC Glucometer 262 H (74 to 106) mg/dL Calcium 7.7 L (8.4-10.2) mg/dL Vancomycin Trough (10-20) ug/mL 04/16/21 04/16/21 04/16/21 Range/Units 06:38 11:40 13:35 WBC (4.0-10.5) K/mm3 RBC (4.1-5.6) M/mm3 Hgb (12.5-18.0) gm/dl Hct (42-50) % MCV (78-100) fl MCH (26-32) pg MCHC (32-36) g/dl RDW (11.5-14.0) % Plt Count (150-450) K/mm3 MPV (7.5-11.0) fl Sodium (137-145) mmol/L Potassium (3.5-5.1) mmol/L Chloride (98-107) mmol/L Carbon Dioxide (22-30) mmol/L Anion Gap (5-15) MEQ/L BUN (9-20) mg/dL Creatinine (0.66-1.25) mg/dL Estimated GFR ML/MIN Glucose (74-106) mg/dL POC Glucometer 181 H 191 H (74 to 106) mg/dL Calcium (8.4-10.2) mg/dL Vancomycin Trough 8.46 L (10-20) ug/mL 04/16/21 Range/Units 16:20 WBC (4.0-10.5) K/mm3 RBC (4.1-5.6) M/mm3 Hgb (12.5-18.0) gm/dl Hct (42-50) % MCV (78-100) fl MCH (26-32) pg MCHC (32-36) g/dl RDW (11.5-14.0) % Plt Count (150-450) K/mm3 MPV (7.5-11.0) fl Sodium (137-145) mmol/L Potassium (3.5-5.1) mmol/L Chloride (98-107) mmol/L Carbon Dioxide (22-30) mmol/L Anion Gap (5-15) MEQ/L BUN (9-20) mg/dL Creatinine (0.66-1.25) mg/dL Estimated GFR ML/MIN Glucose (74-106) mg/dL POC Glucometer 285 H (74 to 106) mg/dL Calcium (8.4-10.2) mg/dL Vancomycin Trough (10-20) ug/mL Multi-Disciplinary Progress Notes: Multi-Disciplinary Progress Notes 04/16/21 10:12 Case Management Note by Shanti Carrero S/W - SHE CONTINUES TO DENY ANY NEW NEEDS AT TIME OF DC. SHE REPORTS HE HAS TAKEN INSULIN BEFORE AT HOME SO HE IS FAMILIAR WITH THAT. SHE REPORTS SHE CAN ASSIST WITH ANY DRESSING CHANGES NEEDED. NO NEW NEEDS FOR DC AT THIS TIME Initialized on 04/16/21 10:12 - END OF NOTE Assessment/Plan (1) Perirectal abscess Current Visit: Yes Status: Acute Assessment & Plan: S 45yo s/p I&D. glucosed not the best. pain improving. no complaints. O af vss nad wound clean, mild erythema/induration. drain in place. a/p: s/p I&D no undrained collection. viable. -continue local wound care dry dressing daily and PRN. -Sitz bathe or spray the wound daily and after bowel movements. -await adequate glucose control/abx per medicine for d/c. -f/u 2 weeks in surgery office. -will sign off please call with questions. Code(s): K61.1 - RECTAL ABSCESS
[2021-04-17] MEDS: PERCOCET TABLET 5/325MG PO PRN ×6 (00:48→22:31)
[2021-04-17] MEDS: Zosyn 3.375 GM Vial 3.375 GM in Sodium Chloride 100ML MINI-BAG PLUS 100 ML IV SCH ×4 (02:02→20:41)
[2021-04-17 06:07] LABS: Absolute Neutrophil Ct (ANC) 3.65 (1.4-6.9); Basophil (Absolute #) 0 (0-0.4); Eosinophil % 2.3 % (0.00-5.0); Eosinophil (Absolute #) 0.13 (0-0.5); Hematocrit 34.8 % (42-50); Lymphocyte (Absolute #) 1.37 (1.0-4.6); Lymphocytes % 24.7 % (24.0-44.0); Mean Cell Volume 89.2 fl (78-100); Mean Corpuscular Hemoglobin 28.2 pg (26-32); Mean Corpuscular Hgb Concent. 31.6 g/dl (32-36); Mean Platelet Volume 9.3 fl (7.5-11.0); Monocytes % 7.2 % (0.0-12.0); Neutrophil % 65.8 % (36.0-66.0); Platelet Count 253 K/mm3 (150-450); Red Cell Distribution Width 12.6 % (11.5-14.0); White Blood Count 5.6 K/mm3 (4.0-10.5)
[2021-04-17] MEDS: VANCOMYCIN 2 GRAM/400 ML BAG 2 GM/400 ML PIGGYBACK IV SCH ×3 (06:07→22:30)
[2021-04-17 06:23] LABS: ALBUMIN 3.2 g/dL (3.5-5.0); ALKALINE PHOSPHATASE 98 U/L (38-126); ANION GAP 9.9 MEQ/L (5-15); BLOOD UREA NITROGEN 9 mg/dL (9-20); CHLORIDE 101 mmol/L (98-107); Calcium 7.7 mg/dL (8.4-10.2); Carbon Dioxide 28 mmol/L (22-30); Creatinine 1 0.73 mg/dL (0.66-1.25); EST GLOMERULAR FILTRATION RATE > 60.0 ML/MIN; Glucose 201 mg/dL (74-106); Potassium 3.6 mmol/L (3.5-5.1); SGOT/AST 35 U/L (17-59); SGPT/ALT 60 U/L (0-50); SODIUM 136 mmol/L (137-145); Total Protein 6.1 g/dL (6.3-8.2)
[2021-04-17] MEDS: HUMALOG SQ PRN ×4 (08:47→22:29)
[2021-04-17] MEDS: Lantus Insulin SQ SCH (08:57)
[2021-04-17] MEDS: Acidophilus TABLET PO SCH ×3 (09:38→22:32)
--- NOTE | 2021-04-17 09:55 | PCM.NOTE ---
Date and Time: 04/17/2153 Subjective Assessment: patient continues to improve, still has pain and copious drainage from incision and drainage site. Objective Exam General Appearance: no apparent distress, alert Wound Assessment: Skin/Wound Assessment Wound/Incision Assessment Start: 04/14/21 00:07 Text: Status: Active Freq: Q6H Protocol: Document 04/17/21 08:00 MJ (Rec: 04/17/21 09:06 MJ [id number]) Wound/Incision Assessment Right Buttock Wound Assessment Shift Assessment Wound Type Incision Wound Stage Non Pressure Wound Drainage Amount Moderate Drainage Description Serosanguineous Drainage Odor None/Absent General Appearance Open to air,Reddened,Draining Surrounding Tissue Bright [place],Edematous Comment right inner buttock edematous and firm, red, and warm to touch, Right Posterior Drain Type [place] Drainage Description Other Odor None/Absent Comment drainage appears pink on drainage pad Wound Photo Photo Taken No Respiratory Exam: normal breath sounds, lungs clear, No respiratory distress Cardiovascular Exam: regular rate/rhythm, normal heart sounds Gastrointestinal/Abdomen Exam: soft, No tenderness, No mass Extremity Exam: other ([place] present with drainage, mild induration) OBJECTIVE DATA Vital Signs: Vital Signs - 24 hr Temp Pulse Resp BP Pulse Ox 04/17/21 08:00 96.6 F 60 19 134/86 97 04/17/21 04:00 97.3 F 64 20 125/80 94 L 04/17/21 00:00 97.3 F 67 20 147/95 100 04/16/21 20:00 96.9 F 72 19 111/63 97 04/16/21 16:00 98.7 F 74 20 132/61 98 04/16/21 12:00 98.0 F 71 18 133/77 97 Pain Assessment - Last Documented Pain Intensity 8 Pain Scale Used 0-10 Pain Scale Intake and Output: Intake & Output 04/14/21 04/15/21 04/16/21 04/17/21 11:59 11:59 11:59 11:59 Intake Total 740 3062 4648 4230 Balance 740 3062 4648 4230 Weight 153.314 kg 153.314 kg Lab Results: Lab Results-Last 24 Hours 04/16/21 04/16/21 04/16/21 Range/Units 11:40 13:35 16:20 WBC (4.0-10.5) K/mm3 RBC (4.1-5.6) M/mm3 Hgb (12.5-18.0) gm/dl Hct (42-50) % MCV (78-100) fl MCH (26-32) pg MCHC (32-36) g/dl RDW (11.5-14.0) % Plt Count (150-450) K/mm3 MPV (7.5-11.0) fl Gran % (36.0-66.0) % Eos # (Auto) (0-0.5) Absolute Lymphs (auto) (1.0-4.6) Absolute Monos (auto) (0.0-1.3) Lymphocytes % (24.0-44.0) % Monocytes % (0.0-12.0) % Eosinophils % (0.00-5.0) % Basophils % (0.0-0.4) % Absolute Granulocytes (1.4-6.9) Basophils # (0-0.4) Sodium (137-145) mmol/L Potassium (3.5-5.1) mmol/L Chloride (98-107) mmol/L Carbon Dioxide (22-30) mmol/L Anion Gap (5-15) MEQ/L BUN (9-20) mg/dL Creatinine (0.66-1.25) mg/dL Estimated GFR ML/MIN Glucose (74-106) mg/dL POC Glucometer 191 H 285 H (74 to 106) mg/dL Calcium (8.4-10.2) mg/dL Total Bilirubin (0.2-1.3) mg/dL AST (17-59) U/L ALT (0-50) U/L Alkaline Phosphatase (38-126) U/L Serum Total Protein (6.3-8.2) g/dL Albumin (3.5-5.0) g/dL Vancomycin Trough 8.46 L (10-20) ug/mL 04/16/21 04/17/21 04/17/21 Range/Units 21:52 05:15 05:15 WBC 5.6 (4.0-10.5) K/mm3 RBC 3.90 L (4.1-5.6) M/mm3 Hgb 11.0 L (12.5-18.0) gm/dl Hct 34.8 L (42-50) % MCV 89.2 (78-100) fl MCH 28.2 (26-32) pg MCHC 31.6 L (32-36) g/dl RDW 12.6 (11.5-14.0) % Plt Count 253 (150-450) K/mm3 MPV 9.3 (7.5-11.0) fl Gran % 65.8 (36.0-66.0) % Eos # (Auto) 0.13 (0-0.5) Absolute Lymphs (auto) 1.37 (1.0-4.6) Absolute Monos (auto) 0.40 (0.0-1.3) Lymphocytes % 24.7 (24.0-44.0) % Monocytes % 7.2 (0.0-12.0) % Eosinophils % 2.3 (0.00-5.0) % Basophils % 0.0 (0.0-0.4) % Absolute Granulocytes 3.65 (1.4-6.9) Basophils # 0 (0-0.4) Sodium 136 L (137-145) mmol/L Potassium 3.6 (3.5-5.1) mmol/L Chloride 101 (98-107) mmol/L Carbon Dioxide 28 (22-30) mmol/L Anion Gap 9.9 (5-15) MEQ/L BUN 9 (9-20) mg/dL Creatinine 0.73 (0.66-1.25) mg/dL Estimated GFR > 60.0 ML/MIN Glucose 201 H (74-106) mg/dL POC Glucometer 317 H (74 to 106) mg/dL Calcium 7.7 L (8.4-10.2) mg/dL Total Bilirubin 0.50 (0.2-1.3) mg/dL AST 35 (17-59) U/L ALT 60 H (0-50) U/L Alkaline Phosphatase 98 (38-126) U/L Serum Total Protein 6.1 L (6.3-8.2) g/dL Albumin 3.2 L (3.5-5.0) g/dL Vancomycin Trough (10-20) ug/mL 04/17/21 Range/Units 07:36 WBC (4.0-10.5) K/mm3 RBC (4.1-5.6) M/mm3 Hgb (12.5-18.0) gm/dl Hct (42-50) % MCV (78-100) fl MCH (26-32) pg MCHC (32-36) g/dl RDW (11.5-14.0) % Plt Count (150-450) K/mm3 MPV (7.5-11.0) fl Gran % (36.0-66.0) % Eos # (Auto) (0-0.5) Absolute Lymphs (auto) (1.0-4.6) Absolute Monos (auto) (0.0-1.3) Lymphocytes % (24.0-44.0) % Monocytes % (0.0-12.0) % Eosinophils % (0.00-5.0) % Basophils % (0.0-0.4) % Absolute Granulocytes (1.4-6.9) Basophils # (0-0.4) Sodium (137-145) mmol/L Potassium (3.5-5.1) mmol/L Chloride (98-107) mmol/L Carbon Dioxide (22-30) mmol/L Anion Gap (5-15) MEQ/L BUN (9-20) mg/dL Creatinine (0.66-1.25) mg/dL Estimated GFR ML/MIN Glucose (74-106) mg/dL POC Glucometer 197 H (74 to 106) mg/dL Calcium (8.4-10.2) mg/dL Total Bilirubin (0.2-1.3) mg/dL AST (17-59) U/L ALT (0-50) U/L Alkaline Phosphatase (38-126) U/L Serum Total Protein (6.3-8.2) g/dL Albumin (3.5-5.0) g/dL Vancomycin Trough (10-20) ug/mL Multi-Disciplinary Progress Notes: Multi-Disciplinary Progress Notes 04/16/21 10:12 Case Management Note by Shanti Carrero S/W - SHE CONTINUES TO DENY ANY NEW NEEDS AT TIME OF DC. SHE REPORTS HE HAS TAKEN INSULIN BEFORE AT HOME SO HE IS FAMILIAR WITH THAT. SHE REPORTS SHE CAN ASSIST WITH ANY DRESSING CHANGES NEEDED. NO NEW NEEDS FOR DC AT THIS TIME Initialized on 04/16/21 10:12 - END OF NOTE Assessment/Plan (1) Abscess, gluteal, right Current Visit: Yes Status: Acute Assessment & Plan: e coli continue zosyn, d/c vanc Code(s): L02.31 - CUTANEOUS ABSCESS OF BUTTOCK (2) Perirectal cellulitis Current Visit: Yes Status: Acute Code(s): K61.1 - RECTAL ABSCESS (3) Uncontrolled type 2 diabetes mellitus Current Visit: Yes Status: Chronic Qualifiers: Glycemic state: with hyperglycemia Qualified Code(s): E11.65 - Type 2 diabetes mellitus with hyperglycemia Code(s): E11.65 - TYPE 2 DIABETES MELLITUS WITH HYPERGLYCEMIA
[2021-04-17] MEDS ORDERED: TROUGH DRUG LEVELS IJ ONE (13:30)
[2021-04-17] MEDS: Sodium Chloride 0.9% W/ 20 mEq KCl/LITER 1,000 ML IV SCH (14:41)
[2021-04-18] MEDS: PERCOCET TABLET 5/325MG PO PRN ×2 (03:00→08:27)
[2021-04-18] MEDS: Zosyn 3.375 GM Vial 3.375 GM in Sodium Chloride 100ML MINI-BAG PLUS 100 ML IV SCH ×2 (03:02→08:29)
[2021-04-18 06:23] LABS: Absolute Neutrophil Ct (ANC) 5.27 (1.4-6.9); BASOPHIL % 0.1 % (0.0-0.4); Basophil (Absolute #) 0.01 (0-0.4); Eosinophil % 1.7 % (0.00-5.0); Eosinophil (Absolute #) 0.13 (0-0.5); Hematocrit 35.8 % (42-50); Hemoglobin 11.3 gm/dl (12.5-18.0); Lymphocyte (Absolute #) 1.67 (1.0-4.6); Lymphocytes % 22.3 % (24.0-44.0); Mean Cell Volume 88.8 fl (78-100); Mean Corpuscular Hgb Concent. 31.6 g/dl (32-36); Mean Platelet Volume 8.9 fl (7.5-11.0); Monocytes % 5.3 % (0.0-12.0); Neutrophil % 70.6 % (36.0-66.0); Platelet Count 285 K/mm3 (150-450); Red Blood Count 4.03 M/mm3 (4.1-5.6); Red Cell Distribution Width 12.8 % (11.5-14.0); White Blood Count 7.5 K/mm3 (4.0-10.5)
[2021-04-18] MEDS: VANCOMYCIN 2 GRAM/400 ML BAG 2 GM/400 ML PIGGYBACK IV SCH (06:31)
[2021-04-18 06:44] LABS: ALBUMIN 3.4 g/dL (3.5-5.0); ALKALINE PHOSPHATASE 97 U/L (38-126); ANION GAP 10.6 MEQ/L (5-15); BLOOD UREA NITROGEN 8 mg/dL (9-20); CHLORIDE 100 mmol/L (98-107); Calcium 8.3 mg/dL (8.4-10.2); Carbon Dioxide 29 mmol/L (22-30); Creatinine 1 0.75 mg/dL (0.66-1.25); EST GLOMERULAR FILTRATION RATE > 60.0 ML/MIN; Glucose 167 mg/dL (74-106); SGOT/AST 29 U/L (17-59); SGPT/ALT 56 U/L (0-50); SODIUM 136 mmol/L (137-145); Total Protein 6.3 g/dL (6.3-8.2)
[2021-04-18 08:04] LABS: BAND 13 % (0.0-2.0); Eosinophil 1 % (0.00-3.0); Lymphocytes 18 % (24-44); Monocyte 10 % (0.0-12.0); Neutrophils 58 % (36.-66.); Platelet Estimate NORMAL (NORMAL); Total Cells Counted 100
[2021-04-18] MEDS: Acidophilus TABLET PO SCH ×3 (08:28→22:01)
[2021-04-18] MEDS: HUMALOG SQ PRN ×3 (08:29→22:14)
[2021-04-18] MEDS: Lantus Insulin SQ SCH (08:29)
[2021-04-18] MEDS: DILAUDID 1 MG/1ML PCA IV PRN (11:45)
[2021-04-18] MEDS ORDERED: PERCOCET TABLET 5/325MG PO PRN (11:55)
[2021-04-18] MEDS: LEVOFLOXACIN 750MG/150ML D5W 750 MG/150 ML BAG IV SCH (12:04)
[2021-04-18 12:11] LABS: ATYPICAL LYMPHS 1 %; BAND 9 % (0.0-2.0); Eosinophil 7 % (0.00-3.0); Lymphocytes 26 % (24-44); Metamyelocyte 1 %; Monocyte 5 % (0.0-12.0); Neutrophils 51 % (36.-66.); Platelet Estimate NORMAL (NORMAL); Total Cells Counted 100
[2021-04-18] MEDS: TYLENOL 325 MG PO PRN (12:12)
--- NOTE | 2021-04-18 13:28 | PCM.NOTE ---
Date and Time: 04/18/21 1327 Subjective Assessment: Patient c/o increased pain rectum to scrotum. Redness and induration has increased. Surgery may take ptn for a 2nd I&D. Culture I&D reviewed with Pharmacist and antibiotic changed to Levaquin . Patient is fairly comfortable laying in bed and is at bedside. Objective Exam General Appearance: mild distress Neurologic Exam: alert, oriented x 3, cooperative, normal mood/affect Skin Exam: normal color, warm, dry Wound Assessment: Skin/Wound Assessment Wound/Incision Assessment Start: 04/14/21 00:07 Text: Status: Active Freq: Q6H Protocol: Document 04/18/21 08:00 BSANTUS (Rec: 04/18/21 11:15 BSANTUS [id number]) Wound/Incision Assessment Right Buttock Wound Assessment Shift Assessment Wound Type Incision Wound Stage Non Pressure Wound Drainage Amount Moderate Drainage Description Serosanguineous Drainage Odor None/Absent General Appearance Open to air,Reddened,Draining Surrounding Tissue Bright Red,Edematous Comment inner right buttock more red today with increase circumfrance of hardened area. Margins drawn to track progression and drain appears to be out more than when this RN had pt 3 days ago. will let surgeon know Right Posterior Drain Type [place] Drainage Description Other Odor None/Absent Comment drainage appears pink/ serosanguineous on drainage pad Wound Photo Photo Taken No Neck Exam: normal inspection Respiratory Exam: normal breath sounds Cardiovascular Exam: regular rate/rhythm Gastrointestinal/Abdomen Exam: soft (nontender) Extremity Exam: normal inspection Rectal Exam: other (perirectal redness and induration -see nurse not for size of extension. Pictures in chart.) OBJECTIVE DATA Vital Signs: Vital Signs - 24 hr Temp Pulse Resp BP Pulse Ox 04/18/21 11:45 97 04/18/21 08:00 95.2 F 68 18 148/81 96 04/18/21 04:00 97.6 F 70 18 135/76 97 04/18/21 00:00 97.0 F 72 18 137/73 99 04/17/21 20:00 97.1 F 66 18 159/87 96 04/17/21 16:00 97.7 F 68 19 155/79 96 Pain Assessment - Last Documented Pain Intensity 5 Pain Scale Used 0-10 Pain Scale Intake and Output: Intake & Output 04/16/21 04/17/21 04/18/21 04/19/21 11:59 11:59 11:59 11:59 Intake Total 4618 423 2618 Output Total 500 Balance 4664 4236 2118 Weight 153.314 kg Lab Results: Lab Results-Last 24 Hours 04/17/21 04/17/21 04/17/21 Range/Units 05:15 13:30 16:26 WBC (4.0-10.5) K/mm3 RBC (4.1-5.6) M/mm3 Hgb (12.5-18.0) gm/dl Hct (42-50) % MCV (78-100) fl MCH (26-32) pg MCHC (32-36) g/dl RDW (11.5-14.0) % Plt Count (150-450) K/mm3 MPV (7.5-11.0) fl Gran % (36.0-66.0) % Eos # (Auto) (0-0.5) Absolute Lymphs (auto) (1.0-4.6) Absolute Monos (auto) (0.0-1.3) Lymphocytes % (24.0-44.0) % Monocytes % (0.0-12.0) % Eosinophils % (0.00-5.0) % Basophils % (0.0-0.4) % Absolute Granulocytes (1.4-6.9) Segmented Neutrophils 51 (36.-66.) % Band Neutrophils 9 H (0.0-2.0) % Lymphocytes (Manual) 26 (24-44) % Monocytes (Manual) 5 (0.0-12.0) % Eosinophils (Manual) 7 H (0.00-3.0) % Basophils # (0-0.4) Metamyelocytes 1 % Atypical Lymphocytes 1 % Platelet Estimate NORMAL (NORMAL) RBC Morphology NORMAL Sodium (137-145) mmol/L Potassium (3.5-5.1) mmol/L Chloride (98-107) mmol/L Carbon Dioxide (22-30) mmol/L Anion Gap (5-15) MEQ/L BUN (9-20) mg/dL Creatinine (0.66-1.25) mg/dL Estimated GFR ML/MIN Glucose (74-106) mg/dL POC Glucometer 179 H (74 to 106) mg/dL Calcium (8.4-10.2) mg/dL Total Bilirubin (0.2-1.3) mg/dL AST (17-59) U/L ALT (0-50) U/L Alkaline Phosphatase (38-126) U/L Serum Total Protein (6.3-8.2) g/dL Albumin (3.5-5.0) g/dL Vancomycin Trough 11.38 (10-20) ug/mL 04/17/21 04/18/21 04/18/21 Range/Units 22:25 05:35 05:35 WBC 7.5 (4.0-10.5) K/mm3 RBC 4.03 L (4.1-5.6) M/mm3 Hgb 11.3 L (12.5-18.0) gm/dl Hct 35.8 L (42-50) % MCV 88.8 (78-100) fl MCH 28.0 (26-32) pg MCHC 31.6 L (32-36) g/dl RDW 12.8 (11.5-14.0) % Plt Count 285 (150-450) K/mm3 MPV 8.9 (7.5-11.0) fl Gran % 70.6 H (36.0-66.0) % Eos # (Auto) 0.13 (0-0.5) Absolute Lymphs (auto) 1.67 (1.0-4.6) Absolute Monos (auto) 0.40 (0.0-1.3) Lymphocytes % 22.3 L (24.0-44.0) % Monocytes % 5.3 (0.0-12.0) % Eosinophils % 1.7 (0.00-5.0) % Basophils % 0.1 (0.0-0.4) % Absolute Granulocytes 5.27 (1.4-6.9) Segmented Neutrophils 58 (36.-66.) % Band Neutrophils 13 H (0.0-2.0) % Lymphocytes (Manual) 18 L (24-44) % Monocytes (Manual) 10 (0.0-12.0) % Eosinophils (Manual) 1 (0.00-3.0) % Basophils # 0.01 (0-0.4) Metamyelocytes % Atypical Lymphocytes % Platelet Estimate NORMAL (NORMAL) RBC Morphology NORMAL Sodium 136 L (137-145) mmol/L Potassium 4.0 (3.5-5.1) mmol/L Chloride 100 (98-107) mmol/L Carbon Dioxide 29 (22-30) mmol/L Anion Gap 10.6 (5-15) MEQ/L BUN 8 L (9-20) mg/dL Creatinine 0.75 (0.66-1.25) mg/dL Estimated GFR > 60.0 ML/MIN Glucose 167 H (74-106) mg/dL POC Glucometer 215 H (74 to 106) mg/dL Calcium 8.3 L (8.4-10.2) mg/dL Total Bilirubin 0.50 (0.2-1.3) mg/dL AST 29 (17-59) U/L ALT 56 H (0-50) U/L Alkaline Phosphatase 97 (38-126) U/L Serum Total Protein 6.3 (6.3-8.2) g/dL Albumin 3.4 L (3.5-5.0) g/dL Vancomycin Trough (10-20) ug/mL 04/18/21 04/18/21 Range/Units 07:16 11:54 WBC (4.0-10.5) K/mm3 RBC (4.1-5.6) M/mm3 Hgb (12.5-18.0) gm/dl Hct (42-50) % MCV (78-100) fl MCH (26-32) pg MCHC (32-36) g/dl RDW (11.5-14.0) % Plt Count (150-450) K/mm3 MPV (7.5-11.0) fl Gran % (36.0-66.0) % Eos # (Auto) (0-0.5) Absolute Lymphs (auto) (1.0-4.6) Absolute Monos (auto) (0.0-1.3) Lymphocytes % (24.0-44.0) % Monocytes % (0.0-12.0) % Eosinophils % (0.00-5.0) % Basophils % (0.0-0.4) % Absolute Granulocytes (1.4-6.9) Segmented Neutrophils (36.-66.) % Band Neutrophils (0.0-2.0) % Lymphocytes (Manual) (24-44) % Monocytes (Manual) (0.0-12.0) % Eosinophils (Manual) (0.00-3.0) % Basophils # (0-0.4) Metamyelocytes % Atypical Lymphocytes % Platelet Estimate (NORMAL) RBC Morphology Sodium (137-145) mmol/L Potassium (3.5-5.1) mmol/L Chloride (98-107) mmol/L Carbon Dioxide (22-30) mmol/L Anion Gap (5-15) MEQ/L BUN (9-20) mg/dL Creatinine (0.66-1.25) mg/dL Estimated GFR ML/MIN Glucose (74-106) mg/dL POC Glucometer 176 H 178 H (74 to 106) mg/dL Calcium (8.4-10.2) mg/dL Total Bilirubin (0.2-1.3) mg/dL AST (17-59) U/L ALT (0-50) U/L Alkaline Phosphatase (38-126) U/L Serum Total Protein (6.3-8.2) g/dL Albumin (3.5-5.0) g/dL Vancomycin Trough (10-20) ug/mL Assessment/Plan (1) Abscess, gluteal, right Current Visit: Yes Status: Acute Assessment & Plan: worse,will need I&D again Code(s): L02.31 - CUTANEOUS ABSCESS OF BUTTOCK (2) Uncontrolled type 2 diabetes mellitus Current Visit: Yes Status: Chronic Qualifiers: Glycemic state: with hyperglycemia Qualified Code(s): E11.65 - Type 2 diabetes mellitus with hyperglycemia Assessment & Plan: sliding scale and basal insulin Code(s): E11.65 - TYPE 2 DIABETES MELLITUS WITH HYPERGLYCEMIA (3) Cellulitis of right buttock Current Visit: Yes Status: Acute Assessment & Plan: see cult report Code(s): L03.317 - CELLULITIS OF BUTTOCK
[2021-04-18] MEDS ORDERED: CLINDAMYCIN-D5W 600 MG/50 ML*** 600 MG/50 ML BAG IV SCH (15:00)
[2021-04-18] MEDS ORDERED: SOD CITRATE-CITRIC ACID SOLN PO SCH (15:00)
[2021-04-18] MEDS ORDERED: Pepcid 20 MG VIAL IV SCH (15:00)
[2021-04-18] MEDS ORDERED: Lactated Ringers 1,000 ML IV SCH (15:00)
[2021-04-18 15:04] LABS: BAND 27 % (0.0-2.0); Basophil 1 % (0.0-1.0); Eosinophil 1 % (0.00-3.0); Lymphocytes 26 % (24-44); Monocyte 4 % (0.0-12.0); Neutrophils 41 % (36.-66.); Nucleated Red Blood Cell 2 %; Total Cells Counted 100
[2021-04-18 15:05] LABS: Platelet Estimate NORMAL (NORMAL)
[2021-04-18 15:06] LABS: Absolute Neutrophil Ct (ANC) 5.32 (1.4-6.9)
[2021-04-18] MEDS ORDERED: DIPRIVAN 200 MG/20 ML IV ONE (15:30)
[2021-04-18] MEDS ORDERED: SUBLIMAZE 250 MCG/5 ML ONE (15:30)
[2021-04-18] MEDS ORDERED: Quelicin Fliptop 200 MG/10 ML ONE (15:30)
[2021-04-18] MEDS ORDERED: Decadron 4 MG INJ ONE (15:30)
[2021-04-18] MEDS ORDERED: Xylocaine-Mpf 2% 5 Ml Vial ONE (15:30)
[2021-04-18] MEDS ORDERED: Zemuron 100 MG/10 ML ONE (15:30)
[2021-04-18] MEDS ORDERED: TORAdol 30 mg Injection ONE (15:30)
[2021-04-18] MEDS ORDERED: BRIDION 200MG/2ML IV ONE (15:30)
[2021-04-18] MEDS ORDERED: Zofran 4 MG/2 ML VIAL ONE (15:30)
[2021-04-18 16:41] LABS: BAND 8 % (0.0-2.0); Eosinophil 1 % (0.00-3.0); Lymphocytes 13 % (24-44); Monocyte 10 % (0.0-12.0); Neutrophils 68 % (36.-66.); Total Cells Counted 100
[2021-04-18] MEDS: Sodium Chloride 0.9% W/ 20 mEq KCl/LITER 1,000 ML IV SCH (20:44)
[2021-04-19] MEDS: DILAUDID 1 MG/1ML PCA IV PRN ×2 (05:16→12:28)
[2021-04-19] MEDS ORDERED: TROUGH DRUG LEVELS IJ ONE (05:30)
[2021-04-19] MEDS: Lantus Insulin SQ SCH (07:58)
[2021-04-19] MEDS: HUMALOG SQ PRN ×4 (07:58→21:21)
[2021-04-19] MEDS: Acidophilus TABLET PO SCH ×3 (10:01→21:21)
[2021-04-19] MEDS: LEVOFLOXACIN 750MG/150ML D5W 750 MG/150 ML BAG IV SCH (10:03)
[2021-04-19] MEDS: Dilaudid 4 MG Tab PO PRN ×3 (12:05→20:18)
[2021-04-20] MEDS: Dilaudid 4 MG Tab PO PRN ×3 (00:39→09:04)
[2021-04-20 05:05] LABS: Hematocrit 35.7 % (42-50); Hemoglobin 11.5 gm/dl (12.5-18.0); Mean Cell Volume 88.6 fl (78-100); Mean Corpuscular Hemoglobin 28.5 pg (26-32); Mean Corpuscular Hgb Concent. 32.2 g/dl (32-36); Mean Platelet Volume 8.6 fl (7.5-11.0); Platelet Count 266 K/mm3 (150-450); Red Blood Count 4.03 M/mm3 (4.1-5.6); Red Cell Distribution Width 12.7 % (11.5-14.0); White Blood Count 6.5 K/mm3 (4.0-10.5)
[2021-04-20 05:52] LABS: Eosinophil 3 % (0.00-3.0); Lymphocytes 47 % (24-44); Monocyte 4 % (0.0-12.0); Neutrophils 46 % (36.-66.); Platelet Estimate NORMAL (NORMAL); Total Cells Counted 100
[2021-04-20 05:53] LABS: Microcytosis 1+
[2021-04-20 06:54] LABS: ALBUMIN 3.4 g/dL (3.5-5.0); ALKALINE PHOSPHATASE 88 U/L (38-126); ANION GAP 12.1 MEQ/L (5-15); BLOOD UREA NITROGEN 11 mg/dL (9-20); CHLORIDE 101 mmol/L (98-107); Calcium 8.5 mg/dL (8.4-10.2); Carbon Dioxide 30 mmol/L (22-30); EST GLOMERULAR FILTRATION RATE > 60.0 ML/MIN; Glucose 171 mg/dL (74-106); Potassium 4.2 mmol/L (3.5-5.1); SGOT/AST 35 U/L (17-59); SGPT/ALT 51 U/L (0-50); SODIUM 139 mmol/L (137-145); Total Protein 6.2 g/dL (6.3-8.2)
[2021-04-20] MEDS: Lantus Insulin SQ SCH (08:14)
[2021-04-20 08:15] VITALS: BP 150/82; PULSE 57; O2SAT 94
[2021-04-20] MEDS: Acidophilus TABLET PO SCH (09:04)
[2021-04-20] MEDS ORDERED: Levofloxacin 500 MG Tablet PO SCH (10:00)
[2021-04-20] MEDS ORDERED: Levofloxacin 250MG Tablet PO SCH (10:00)
[2021-04-20] MEDS ORDERED: Dilaudid 4 MG Tab PO ONE (15:14)
--- NOTE | 2021-04-21 10:07 | OP ---
SURGERY DATE/TIME: 04/18/2021 1543 PREOPERATIVE DIAGNOSIS: Necrotic soft tissue infection perianal. POSTOPERATIVE DIAGNOSIS: Necrotic soft tissue infection perianal. PROCEDURE: Debridement and necrotizing soft tissue infection perianal. SURGEON: Marcello Huang M.D. ANESTHESIA: General. ESTIMATED BLOOD LOSS: 100. PATIENT CONDITION: Stable. COMPLICATIONS: None. SPECIMENS: 1) Swab for culture. 2) Debridement tissue. HISTORY: The patient is a 45-year-old male, uncontrolled diabetic, admitted with perirectal abscess that was incised and drained. He did okay immediately after that. His sugars were difficult to control. He had increased induration and erythema around the wound and upon inspection there is some necrotic subcutaneous tissue extruding from the wound. Discussion had with the patient that this needs to be debrided. Unclear as to the extent of the infection but discussion with the patient that this is going to probably take a couple of months to heal as it is a very difficult wound but definitely needs debrided. FINDINGS: A 13 x 6 x 4 cm pocket extending down to the fascia but not really including the fascia this is perirectal that does extend over the gluteus a little bit but does not involve the sphincter and there is no discrete fistula and it does not tract along with that. DESCRIPTION OF PROCEDURE: The patient was brought to operating room, routinely positioned, prepped and draped prone jackknife. Appropriately padded. Received preoperative antibiotic. Time out is performed. The area is devitalized subcutaneous fat sticking out of the wound was debrided. A swab is taken for culture. There is purulence in the wound. The area of some necrotic subcutaneous fat that essentially fell off. It was sharply debrided with scissors to viable tissue circumferentially. The wound extends from the gluteal cleft superiorly down to about 3:00 right of the anus. It does not involve the sphincter muscles. There is no discrete fistula. Digital rectal exam is normal. There is no tract. It extends down to the fascia over the gluteus but it does not tract along the fascia inferiorly or outside of the wound. The wound is 13 cm craniocaudal, 6 cm wide and 4 cm deep. There is good hemostasis. The wound is packed with Betadine and Kerlix covered with clean dressing. All counts were correct. The patient tolerated the procedure well. Extubated and taken to recovery in stable condition.
== END 2021-04-20 12:20 | disposition home or self-care (01) | DRG 394 ==
LOC: ED 19:59 → MED SURG 04-14 00:05 → OBSVTOIN 04-15 08:00 → MED SURG 04-17 15:40
PROVIDERS: ADMIT Family Medicine; ATTEND Family Medicine
PROC: 0HB9XZZ Excision of Perineum Skin, External Approach (ICD-10-PCS; principal; 2021-04-18)
DX: K61.1 Rectal abscess (principal); L02.31 Cutaneous abscess of buttock; L03.317 Cellulitis of buttock; E11.65 Type 2 diabetes mellitus with hyperglycemia; R50.9 Fever, unspecified; R19.7 Diarrhea, unspecified; Z20.828 Contact with and (suspected) exposure to other viral communicable diseases
CPT/HCPCS: 0241U; 36415; 74177; 80048; 80053; 80202; 82947; 83036; 83605; 83735; 85025; 87040; 87070; 87077; 87186; 88304; 96374; 96375; 99284; G0378; J0330; J1100; J1170; J1817; J1885; J1956; J2250; J2405; J2704; J3010; A9270-GY; J3370

== ENCOUNTER 2023-10-04 20:31 | Emergency (ER) | payer MEDICAID, OTHER ==
--- NOTE | 2023-10-04 20:41 | ERPHSYRPT ---
- History of Present Illness Time Seen by Provider: 10/04/23 20:41 Source: patient, family Exam Limitations: no limitations Physician History: This is an obese 47-year-old diabetic white male patient who presents with left buttock abscess that he knew was present for 2 to 3 days. However, at work today, it ruptured open and has been draining. He has no significant pain. He has not been checking his blood sugar levels. He has not had a fever. Timing/Duration: day(s) (2 to 3 days ago) Quality: painful Severity: mild Location: other (Left buttockaway from the Collin anal area) Possible Causes: other (Abscess) Associated Symptoms: other (Buttock abscess) Allergies/Adverse Reactions: No Known Drug Allergies Allergy (Verified 10/04/23 20:38) Home Medications: Atorvastatin Calcium [Lipitor] 40 mg PO DAILY 10/04/23 [History] Dapagliflozin Propanediol [Farxiga] 10 mg PO DAILY 10/04/23 [History] Losartan Potassium 50 mg [Cozaar 50 MG] 50 mg PO DAILY 10/04/23 [History] Metformin HCl 500 mg [Glucophage 500 MG] 500 mg PO BID 10/04/23 [History] Metoprolol Succinate 50 mg [Toprol Xl 50 MG] 50 mg PO DAILY 10/04/23 [History] Tirzepatide [Mounjaro] 5 mg SQ WEEKLY 10/04/23 [History] hydroCHLOROthiazide [Hydrochlorothiazide] 12.5 mg PO DAILY 10/04/23 [History] Travel Risk - International Travel Have you traveled outside of the country in past 3 weeks: No - Emerging Infectious Disease Are you exhibiting symptoms associated with any current EIDs: No - Review of Systems Constitutional: No Symptoms Eyes: No Symptoms Ears, Nose, & Throat: No Symptoms Respiratory: No Symptoms Cardiac: No Symptoms Abdominal/Gastrointestinal: No Symptoms Genitourinary Symptoms: No Symptoms Musculoskeletal: No Symptoms Skin: Other (Left buttock abscessdraining well) Neurological: No Symptoms Psychological: No Symptoms Endocrine: No Symptoms Hematologic/Lymphatic: No Symptoms Immunological/Allergic: No Symptoms All Other Systems: Reviewed and Negative - Past Medical History Pertinent Past Medical History: No Neurological History: No Pertinent History ENT History: No Pertinent History Cardiac History: Hypertension Respiratory History: No Pertinent History Endocrine Medical History: Diabetes Type II Musculoskeletal History: No Pertinent History GI Medical History: No Pertinent History History: No Pertinent History Psycho-Social History: No Pertinent History Male Reproductive Disorders: No Pertinent History Other Medical History: cellulitis left inner thigh 2015 - Past Surgical History Past Surgical History: Yes Neuro Surgical History: No Pertinent History Cardiac: No Pertinent History Respiratory: No Pertinent History Gastrointestinal: No Pertinent History Genitourinary: No Pertinent History Musculoskeletal: Orthopedic Surgery Male Surgical History: No Pertinent History Other Surgical History: shoulder surgery - Social History Smoking Status: Never smoker Exposure to second hand smoke: No Drug Use: none - Nursing Vital Signs Nursing Vital Signs: Initial Vital Signs Temperature 98.4 F 10/04/23 20:39 Pulse Rate 97 H 10/04/23 20:39 Respiratory Rate 18 10/04/23 20:39 Blood Pressure 174/107 10/04/23 20:39 O2 Sat by Pulse Oximetry 99 10/04/23 20:39 Pain Scale Pain Intensity 6 - Physical Exam General Appearance: no apparent distress, alert, obese Eye Exam: PERRL/EOMI, eyes nml inspection Ears, Nose, Throat Exam: normal ENT inspection, moist mucous membranes Neck Exam: normal inspection, non-tender, supple, full range of motion Respiratory Exam: airway intact, No chest tenderness, No respiratory distress Gastrointestinal/Abdomen Exam: No tenderness Rectal Exam: other (Patient has an open draining abscess left buttock area away from the perianal region. There is no significant pain to palpation. Again, it is draining well) Back Exam: normal inspection, normal range of motion, No CVA tenderness, No vertebral tenderness Extremity Exam: normal inspection, normal range of motion, pelvis stable Neurologic Exam: alert, oriented x 3, cooperative, supervisor locomotive II-XII nml as tested, normal mood/affect, nml cerebellar function, nml station & gait, sensation nml Skin Exam: other Lymphatic Exam: No adenopathy (Above) SpO2 Interpretation: normal O2 Delivery: Room Air - Course Nursing assessment & vital signs reviewed: Yes Ordered Tests: Active Orders 24 hr Category Date Time Status CULTURE,WOUND Stat Lab 10/04/23 20:57 Ordered - Progress Progress: unchanged Progress Note: 10/04/23 21:00 My medical decision making and the assignment of low complexity to this patient's medical issue today is based on review the patient's past medical history, review of the patient's medication list, review of patient drug allergy list, history present illness and physical findings on examination. The workup of this patient includes taken a wound culture of this open draining abscess. The patient has an open draining abscess. I do not think he requires incision and drainage at this time. I will provide him with an intramuscular dose of Rocephin as well as oral Bactrim DS. We will have him return tomorrow, 10/05/2023, for reevaluation Counseled pt/family regarding: diagnosis, need for follow-up Medical Desision Making - Independent Historian Additional History obtained from: Spouse - Diagnostic Testing Diagnostic test were ordered, analyzed, and reviewed by me: No - Risk of complications The pt has a mod risk of morbidity or mortality based on: Need for prescription drug management - Departure Departure Disposition: Home Clinical Impression: Left buttock abscess Condition: Stable Critical Care Time: No Referrals: PETROS CAREY PA [Primary Care Provider] - Follow up/PCP as directed Additional Instructions: Go home tonight, take a shower and let the soap and water flow over the buttock abscess site. In addition, twice a day, compress the site to keep the pocket collapsed. Sitz bath twice a day with warm soapy water warm Epsom salts. Return to the emergency department tomorrow, 10/05/2023, as discussed for reassessment. Take your antibiotics and other medication as prescribed. Prescriptions: Smz/Tmp Ds Tablet [Bactrim Ds Tablet] 1 udtab PO BID #14 tablet
[2023-10-04 20:49] VITALS: BP 174/107; PULSE 97; RESP 18; TEMP 98.4; O2SAT 99
[2023-10-04] MEDS ORDERED: XYLOCAINE 1% HCL 20 ML MDV ONE (21:08)
[2023-10-04] MEDS ORDERED: Rocephin 1000 MG INJ ONE (21:08)
[2023-10-04] MEDS ORDERED: BACTRIM DS TABLET PO ONE (21:08)
[2023-10-04] MEDS: BACTRIM DS TABLET PO ONE (21:11)
[2023-10-04] MEDS: Rocephin 1000 MG INJ IM ONE (21:11)
== END 2023-10-04 21:29 | disposition home or self-care (01) ==
LOC: ED 20:31
DX: L02.31 Cutaneous abscess of buttock (principal); I10 Essential (primary) hypertension; E11.9 Type 2 diabetes mellitus without complications; Z79.84 Long term (current) use of oral hypoglycemic drugs; Z79.85 Long-term (current) use of injectable non-insulin antidiabetic drugs; Z79.899 Other long term (current) drug therapy
CPT/HCPCS: 87070; 87077; 87186; 96372; 99283; J0696; A9270-GY

== ENCOUNTER 2023-10-05 17:29 | Emergency (ER) | payer OTHER ==
[2023-10-05 17:36] VITALS: BP 161/95; PULSE 83; TEMP 97.4
[2023-10-05 18:19] VITALS: O2SAT 95
--- NOTE | 2023-10-05 18:32 | ERPHSYRPT ---
- History of Present Illness Time Seen by Provider: 10/05/23 18:15 Source: patient Exam Limitations: no limitations Patient Subjective Stated Complaint: pt here to have wound recheck, he has an abscess to buttuck. no fever Triage Nursing Assessment: pt alert, walked in, resp easy, skin w/d/p. has abscess to buttuck that is drainging Physician History: The patient presents for follow-up after an abscess in the gluteal cleft ruptured and began draining. The abscess developed on Wednesday and ruptured on its own. He reports that the abscess is still draining well and that the area around the abscess is still firm. He has been managing the drainage with 4x4 dressings and has been taking prescribed antibiotics. The patient has a history of a similar abscess in the same area about two and a half years ago, which required surgical intervention and placement of a drain. Timing/Duration: yesterday Quality: painful Severity: mild Location: perirectal Possible Causes: no cause identified Associated Symptoms: denies symptoms Allergies/Adverse Reactions: No Known Drug Allergies Allergy (Verified 10/05/23 17:34) Home Medications: Atorvastatin Calcium [Lipitor] 40 mg PO DAILY 10/04/23 [History] Dapagliflozin Propanediol [Farxiga] 10 mg PO DAILY 10/04/23 [History] Losartan Potassium 50 mg [Cozaar 50 MG] 50 mg PO DAILY 10/04/23 [History] Metformin HCl 500 mg [Glucophage 500 MG] 500 mg PO BID 10/04/23 [History] Metoprolol Succinate 50 mg [Toprol Xl 50 MG] 50 mg PO DAILY 10/04/23 [History] Tirzepatide [Mounjaro] 5 mg SQ WEEKLY 10/04/23 [History] hydroCHLOROthiazide [Hydrochlorothiazide] 12.5 mg PO DAILY 10/04/23 [History] Hx Tetanus, Diphtheria Vaccination/Date Given: Yes Hx Influenza Vaccination/Date Given: No Hx Pneumococcal Vaccination/Date Given: No Immunizations Up to Date: Yes Travel Risk - International Travel Have you traveled outside of the country in past 3 weeks: No - Emerging Infectious Disease Are you exhibiting symptoms associated with any current EIDs: No - Review of Systems All Other Systems: Reviewed and Negative - Past Medical History Pertinent Past Medical History: No Neurological History: No Pertinent History ENT History: No Pertinent History Cardiac History: Hypertension Respiratory History: No Pertinent History Endocrine Medical History: Diabetes Type II Musculoskeletal History: No Pertinent History GI Medical History: No Pertinent History History: No Pertinent History Psycho-Social History: No Pertinent History Male Reproductive Disorders: No Pertinent History Other Medical History: cellulitis left inner thigh 2014 - Past Surgical History Past Surgical History: Yes Neuro Surgical History: No Pertinent History Cardiac: No Pertinent History Respiratory: No Pertinent History Gastrointestinal: No Pertinent History Genitourinary: No Pertinent History Musculoskeletal: Orthopedic Surgery Male Surgical History: No Pertinent History Other Surgical History: shoulder surgery - Social History Smoking Status: Never smoker Exposure to second hand smoke: No Drug Use: none - Social Determinants of Health Will the patient participate in the screening: Yes Do you worry about a steady place to live?: No Do you have any problems with any of the following?: No known problems In the past 12 months,have you had to go without utilities?: No Transportation Issues: No Has anyone in your support network made you feel unsafe?: No Have you or anyone in your house had to go without enough: No - Nursing Vital Signs Nursing Vital Signs: Initial Vital Signs Temperature 97.4 F 10/05/23 17:35 Pulse Rate 83 10/05/23 17:35 Respiratory Rate 16 10/05/23 17:35 Blood Pressure 161/95 10/05/23 17:35 O2 Sat by Pulse Oximetry 97 10/05/23 17:35 Pain Scale Pain Intensity 0 - Physical Exam General Appearance: no apparent distress Skin Exam: other (1cm opening left gluteal cleft, mild ttp, no active drainage, no erythema, firm) SpO2: 95 - Course Nursing assessment & vital signs reviewed: Yes - Progress Progress: improved Progress Note: minimal drainage from dressing, wound open, no erythema, continue abx as instructed Counseled pt/family regarding: diagnosis Medical Desision Making - Diagnostic Testing Diagnostic test were ordered, analyzed, and reviewed by me: No - Risk of complications Low Risk: Low risk of morbidity from additional dx testing or treatment - Departure Departure Disposition: Home Clinical Impression: Left buttock abscess Condition: Good Critical Care Time: No Referrals: PETROS CAREY PA [Primary Care Provider] - Follow up/PCP as directed Instructions: Wound Care (DC)
[2023-10-05 18:52] VITALS: RESP 18
== END 2023-10-05 18:52 | disposition home or self-care (01) ==
LOC: ED 17:29
DX: L02.31 Cutaneous abscess of buttock (principal); I10 Essential (primary) hypertension; E11.9 Type 2 diabetes mellitus without complications; Z79.84 Long term (current) use of oral hypoglycemic drugs; Z79.85 Long-term (current) use of injectable non-insulin antidiabetic drugs; Z79.899 Other long term (current) drug therapy
CPT/HCPCS: 99281

== ENCOUNTER 2024-08-20 16:27 | Emergency (ER) | payer BC, OTHER ==
[2024-08-20 16:54] VITALS: TEMP 97.2
--- NOTE | 2024-08-20 17:20 | ERPHSYRPT ---
- History of Present Illness Time Seen by Provider: 08/20/24 17:16 Source: patient, family Exam Limitations: no limitations Patient Subjective Stated Complaint: pt reports having an abcess on his upper medial right buttock Triage Nursing Assessment: Pt brought to the ER by his , hypertensive, rates pain as 7/10, abcess to the upper medial right buttock, pt has a hx of them, pulses normal, skin n/w/d, no difficulty breathing, denies chest pain, denies N&V, doesn't appear to be in any distress Physician History: Patient is a 48-year-old male with significant past medical history of diabetes hypertension obesity history of previous abscess in the right buttock area started having a abscess in his right medial cleft of the buttock 1 week ago. In last 1 to 2 days she has low-grade fever with chills and increasing pain so he came to the emergency room today. He states that he has same type of abscess before and it that time it needed to be drained. Patient denies any other discomfort. Timing/Duration: day(s) (5-7 days) Severity: moderate Associated Symptoms: denies symptoms Allergies/Adverse Reactions: No Known Drug Allergies Allergy (Verified 08/20/24 16:54) Home Medications: Atorvastatin Calcium [Lipitor] 40 mg PO DAILY 10/04/23 [History] Metformin HCl 500 mg [Glucophage 500 MG] 1,000 mg PO BID 10/04/23 [History] Metoprolol Succinate 50 mg [Toprol Xl 50 MG] 50 mg PO DAILY 10/04/23 [History] Tirzepatide [Mounjaro] 10 mg SQ WEEKLY 10/04/23 [History] Hx Tetanus, Diphtheria Vaccination/Date Given: Yes Hx Influenza Vaccination/Date Given: No Hx Pneumococcal Vaccination/Date Given: No Travel Risk - International Travel Have you traveled outside of the country in past 3 weeks: No - Emerging Infectious Disease Are you exhibiting symptoms associated with any current EIDs: No - Review of Systems Constitutional: No Fever, No Chills Eyes: No Symptoms Ears, Nose, & Throat: No Symptoms Respiratory: No Cough, No Dyspnea Cardiac: No Chest Pain, No Edema, No Syncope Abdominal/Gastrointestinal: No Abdominal Pain, No Nausea, No Vomiting, No Diarrhea Genitourinary Symptoms: No Dysuria Musculoskeletal: No Back Pain, No Neck Pain Skin: Cellulitis (right buttock), No Rash Neurological: No Dizziness, No Focal Weakness, No Sensory Changes Psychological: No Symptoms Endocrine: No Symptoms All Other Systems: Reviewed and Negative - Past Medical History Pertinent Past Medical History: No Neurological History: No Pertinent History ENT History: No Pertinent History Cardiac History: Hypertension Respiratory History: No Pertinent History Endocrine Medical History: Diabetes Type II Musculoskeletal History: No Pertinent History GI Medical History: No Pertinent History History: No Pertinent History Psycho-Social History: No Pertinent History Male Reproductive Disorders: No Pertinent History Other Medical History: cellulitis left inner thigh 2014 - Past Surgical History Past Surgical History: Yes Neuro Surgical History: No Pertinent History Cardiac: No Pertinent History Respiratory: No Pertinent History Gastrointestinal: No Pertinent History Genitourinary: No Pertinent History Musculoskeletal: Orthopedic Surgery Male Surgical History: No Pertinent History Other Surgical History: shoulder surgery, abcess drained - Social History Smoking Status: Never smoker Exposure to second hand smoke: No Drug Use: none - Social Determinants of Health Will the patient participate in the screening: Yes Do you worry about a steady place to live?: No Do you have any problems with any of the following?: No known problems In the past 12 months,have you had to go without utilities?: No Transportation Issues: No Has anyone in your support network made you feel unsafe?: No Have you or anyone in your house had to go w/o enough food: No - Nursing Vital Signs Nursing Vital Signs: Initial Vital Signs Temperature 97.2 F 08/20/24 16:46 Pulse Rate 76 08/20/24 16:46 Blood Pressure 171/106 08/20/24 16:46 O2 Sat by Pulse Oximetry 96 08/20/24 16:46 Pain Scale Pain Intensity 7 - Physical Exam General Appearance: no apparent distress, alert Eye Exam: PERRL/EOMI, eyes nml inspection Ears, Nose, Throat Exam: normal ENT inspection, TMs normal, pharynx normal, moist mucous membranes Neck Exam: normal inspection, non-tender, supple, full range of motion Respiratory Exam: normal breath sounds, lungs clear, No respiratory distress Cardiovascular Exam: regular rate/rhythm, normal heart sounds, normal peripheral pulses Gastrointestinal/Abdomen Exam: soft, normal bowel sounds, No tenderness, No mass Male Genitalia Exam: normal genitalia Rectal Exam: deferred Back Exam: normal inspection, normal range of motion, No CVA tenderness, No vertebral tenderness Extremity Exam: normal inspection, normal range of motion, pelvis stable Neurologic Exam: alert, oriented x 3, cooperative, normal mood/affect, nml cerebellar function, nml station & gait, sensation nml, No motor deficits Skin Exam: normal color, warm, dry, other (abscess right medial buttock), No rash Lymphatic Exam: No adenopathy SpO2: 97 - Course Nursing assessment & vital signs reviewed: Yes Ordered Tests: Active Orders 24 hr Category Date Time Status BLOOD CULTURE Stat Lab 08/20/24 17:17 Received CBC W DIFF Stat Lab 08/20/24 17:18 Completed CMP Stat Lab 08/20/24 17:18 Completed Medication Summary Generic Name Dose Route Start Last Admin Trade Name Freq PRN Reason Stop Dose Admin Sodium Chloride 1,000 mls @ 999 mls/hr 08/20/24 16:51 Sodium Chloride 0.9% 1000 Ml IV 08/20/24 17:51 .Q1H1M STA Discontinued Medications Generic Name Dose Route Start Last Admin Trade Name Freq PRN Reason Stop Dose Admin Cefazolin Sodium 2 gm in 100 mls @ 200 mls/hr 08/20/24 16:51 Cefazolin 2 Gm/100 Ml Nacl IV 08/20/24 17:20 STAT STA Sodium Chloride Confirm 08/20/24 17:43 Sodium Chloride 0.9% 1000 Ml Administered 08/20/24 17:44 Dose 1,000 mls @ ud .ROUTE .STK-MED ONE Cefazolin Sodium Confirm 08/20/24 17:43 Cefazolin 2 Gm/100 Ml Nacl Administered 08/20/24 17:44 Dose 2 gm in 100 mls @ ud IV .STK-MED ONE Lab/Rad Data: Laboratory Result Diagrams 08/20/24 17:18 08/20/24 17:18 Laboratory Results 08/20/24 08/20/24 Range/Units 17:18 17:18 WBC 6.3 (4.23-9.07) x10^3/uL RBC 4.88 (4.63-6.08) x10^6/uL Hgb 14.3 (13.7-17.5) g/dL Hct 39.8 L (40.1-51.0) % MCV 81.6 (79.0-92.2) fL MCH 29.3 (25.7-32.2) pg MCHC 35.9 (32.3-36.5) g/dL RDW 12.1 (11.6-14.4) % Plt Count 142 L (163-337) x10^3/uL MPV 9.2 L (9.4-12.4) fL Gran % 59.9 (34.0-67.9) % Immature Gran % (Auto) 0.5 H (0.001-0.429) % Nucleat RBC Rel Count 0.0 (0.00-0.2) % Eos # (Auto) 0.06 (0.04-0.54) x10^3/uL Immature Gran # (Auto) 0.03 (0.001-0.031) x10^3u/L Absolute Lymphs (auto) 2.05 (1.32-3.57) x10^3/uL Absolute Monos (auto) 0.37 (0.30-0.82) x10^3/uL Absolute Nucleated RBC 0.00 (0.00-0.012) x10^3u/L Lymphocytes % 32.5 (21.8-53.1) % Monocytes % 5.9 (5.3-12.2) % Eosinophils % 1.0 (0.8-7.0) % Basophils % 0.2 (0.2-1.2) % Absolute Granulocytes 3.78 (1.78-5.38) x10^3/uL Basophils # 0.01 (0.01-0.08) x10^3/uL Sodium 134 L (135-145) mmol/L Potassium 4.6 (3.5-5.1) mmol/L Chloride 96 L (98-107) mmol/L Carbon Dioxide 25 (22-30) mmol/L Anion Gap 18.3 H (5-15) MEQ/L BUN 11 (9-20) mg/dL Creatinine 0.68 (0.66-1.25) mg/dL Estimated GFR 114.7 ML/MIN Glucose 428 H (74-106) mg/dL Calcium 8.8 (8.4-10.2) mg/dL Total Bilirubin 0.60 (0.2-1.3) mg/dL AST 30 (17-59) U/L ALT 42 (0-50) U/L Alkaline Phosphatase 74 (38-126) U/L Serum Total Protein 6.7 (6.3-8.2) g/dL Albumin 4.3 (3.5-5.0) g/dL - Progress Progress: improved Counseled pt/family regarding: lab results, diagnosis, need for follow-up Medical Desision Making - Diagnostic Testing Diagnostic test were ordered, analyzed, and reviewed by me: Yes - Risk of complications Low Risk: Low risk of morbidity from additional dx testing or treatment - Departure Departure Disposition: Home Clinical Impression: Cellulitis of right buttock Condition: Stable Critical Care Time: No Referrals: PETROS CAREY PA [Primary Care Provider, UNKNOWN] - Follow up/PCP as directed Instructions: Cellulitis (skin infection) in adults - Discharge instructions Additional Instructions: Discharge/Care Plan JOCELIN WAHL was seen on 08/20/24 in the Emergency Room. The patient was counseled regarding Diagnosis,Lab results, Imaging studies, need for follow up and when to return to the Emergency Room. Prescriptions given: Discharge Note I have spoken with the patient and/or caregivers. I have explained the patient's condition, diagnosis and treatment plan based on the information available to me at this time. I have answered the patient's and/or caregiver's questions and addressed any concerns. The patient and/or caregivers have as good understanding of the patient's diagnosis, condition and treatment plan as can be expected at this point. The vital signs have been stable. The patient's condition is stable and appropriate for discharge from the emergency department. The patient will pursue further outpatient evaluation with the primary care physician or other designated or consulting physician as outlined in the discharge instructions. The patient and/or caregivers are agreeable to this plan of care and follow-up instructions have been explained in detail. The patient and/or caregivers have received these instruction. The patient/and or caregivers are aware that any significant change in condition or worsening of symptoms should prompt an immediate return to this or the closest emergency department or call 911. JOCELIN WAHL was seen on 08/20/24 n the Emergency Room. At that time you were treated for an emergent condition, during your visit Laboratory, Radiology and/or other procedures may have been ordered. It is very important that you follow-up with your Primary Care Physician CORIANNE ANITA VANDERKOLK within the next 24-48 hours to review your Emergency Room visit and the final results of testing that was ordered. Some test results such as Urine Cultures, Blood Cultures, and other cultures if ordered will not be finalized for 24-48 hours. If you do not have a Primary Care Provider please call the medical records department at [phone] ext [phone] to obtain a copy of your results or you may sign into our patient portal to obtain these results by visiting us @ [email or web address] and completing the following steps: 1. Click on the Patient Portal link 2. Click the Patient Self Enrollment Link to complete the enrollment form and entering your 3. Once the enrollment form is completed you will receive an email with a temporary ID and password at the email address you provided. 4. Next choose a user name and password. Your user name must be at least 4 characters long and your password must be at least 4 characters long. 5. Choose a security question from the list and provide your answer to the question. If you already have signed into the Health Portal you may access your Health Care Information 16/11 by the following steps: 1. Login to our website @ [email or web address] 2. Enter your original user name and password. FAQS The [facility] Health Portal is an online tool that contains your Lab Results, Radiology Reports, Visit History, Discharge Instructions and Health Summary Lab and Radiology Results will not be available for 72 hours on the portal. The Portal is a secure site, passwords are encryted and URLs are re-written so they cannot be copied and pasted. You and authorized family members are the only ones who can access your Portal. Also there is a timeout feature that protects your information if you leave the Portal page open. If you have technical difficulty please use the Contact Us link on the page this will allow you to submit any questions you have regarding the Portal or you may contact the Medical Record Department at [phone] ext [phone]. Prescriptions: Cefdinir 300 mg PO BID #20 cap
[2024-08-20 17:21] LABS: Absolute Neutrophil Ct (ANC) 3.78 x10^3/uL (1.78-5.38); BASOPHIL % 0.2 % (0.2-1.2); Basophil (Absolute #) 0.01 x10^3/uL (0.01-0.08); Eosinophil (Absolute #) 0.06 x10^3/uL (0.04-0.54); Hematocrit 39.8 % (40.1-51.0); Hemoglobin 14.3 g/dL (13.7-17.5); IMMATURE GRAN # 0.03 x10^3u/L (0.001-0.031); IMMATURE GRAN % 0.5 % (0.001-0.429); Lymphocyte (Absolute #) 2.05 x10^3/uL (1.32-3.57); Lymphocytes % 32.5 % (21.8-53.1); Mean Cell Volume 81.6 fL (79.0-92.2); Mean Corpuscular Hemoglobin 29.3 pg (25.7-32.2); Mean Corpuscular Hgb Concent. 35.9 g/dL (32.3-36.5); Mean Platelet Volume 9.2 fL (9.4-12.4); Monocyte (Absolute #) 0.37 x10^3/uL (0.30-0.82); Monocytes % 5.9 % (5.3-12.2); Neutrophil % 59.9 % (34.0-67.9); Platelet Count 142 x10^3/uL (163-337); Red Blood Count 4.88 x10^6/uL (4.63-6.08); Red Cell Distribution Width 12.1 % (11.6-14.4); White Blood Count 6.3 x10^3/uL (4.23-9.07)
[2024-08-20 17:43] LABS: ALBUMIN 4.3 g/dL (3.5-5.0); ANION GAP 18.3 MEQ/L (5-15); BILIRUBIN,TOTAL 0.6 mg/dL (0.2-1.3); Calcium 8.8 mg/dL (8.4-10.2); Creatinine 1 0.68 mg/dL (0.66-1.25); EST GLOMERULAR FILTRATION RATE 114.7 ML/MIN; Potassium 4.6 mmol/L (3.5-5.1); Total Protein 6.7 g/dL (6.3-8.2)
[2024-08-20] MEDS ORDERED: CEFAZOLIN 2 GM/100 ML NaCl 2 GM/100 ML IVPB IV ONE (17:43)
[2024-08-20] MEDS ORDERED: Sodium Chloride 0.9% 1000 ML 1,000 ML ONE (17:43)
[2024-08-20] MEDS: CEFAZOLIN 2 GM/100 ML NaCl 2 GM/100 ML IVPB IV STA (17:51)
[2024-08-20] MEDS: Sodium Chloride 0.9% 1000 ML 1,000 ML IV STA (17:54)
[2024-08-20 18:16] VITALS: BP 136/80; PULSE 78; RESP 18; O2SAT 98
== END 2024-08-20 18:27 | disposition home or self-care (01) ==
LOC: ED 16:27
DX: L03.317 Cellulitis of buttock (principal); I10 Essential (primary) hypertension; E11.9 Type 2 diabetes mellitus without complications; Z79.84 Long term (current) use of oral hypoglycemic drugs; Z79.85 Long-term (current) use of injectable non-insulin antidiabetic drugs; Z79.899 Other long term (current) drug therapy
CPT/HCPCS: 36415; 80053; 85025; 87040; 96374; 99284; J0690